=== PATIENT | female | born 1955 | race Caucasian/White ===

== ENCOUNTER 2016-10-19 19:51 | Inpatient (IN) | payer OTHER ==
[~2016-10-19] VITALS: Ht 152.4 cm; Wt 111.0 kg
[2016-10-19] MEDS ORDERED: SODIUM CHLORIDE 0.9% 1000ML 1,000 ML IV STA (19:54)
[2016-10-19] MEDS ORDERED: LORAZEPAM 2 MG/ML 1 ML VIAL IV STA (19:54)
[2016-10-19] MEDS ORDERED: FENTANYL CITRATE INJ 50 MCG/1 ML 2 ML VIAL IV STA (19:54)
[2016-10-19 20:45] LABS: BLOOD UREA NITROGEN 18 mg/dl (7-18); CALCIUM 9.1 mg/dl (8.5-10.1); CARBON DIOXIDE 24 mmol/L (21-32); CHLORIDE 104 mmol/L (98-107); GLUCOSE 112 mg/dl (70-99); POTASSIUM 3.3 mmol/L (3.5-5.1); SODIUM 141 mmol/L (136-145)
[2016-10-19 20:48] LABS: MEAN CELL VOLUME 83.3 fL (80-100); MEAN CORPUSCULAR HEMOGLOBIN 28.9 pg (25-34); MEAN CORPUSCULAR HGB CONC 34.7 g/dl (32-36); MEAN PLATELET VOLUME 12.3 fL (7.4-10.4); PLATELET COUNT 369 K/uL (130-400); WHITE BLOOD COUNT 37.83 K/uL (4.8-10.8)
[2016-10-19 20:49] LABS: BASO % 0.3 %; BASO ABS # 0.11 K/uL (0-0.2); COMPLETE YES; EOS % 0.8 %; IG% 0.9 %; LYMPH % 7.8 %; LYMPH ABS # 2.95 K/uL (1.2-3.4); MONO % 5.9 %; NEUT % 84.3 %
[2016-10-19] MEDS: HYDROmorphone INJ 1 MG/ML SYR IV PRN ×2 (21:08→22:50)
[2016-10-19] MEDS ORDERED: IBUP-1050 PO (21:22)
[2016-10-19] MEDS ORDERED: LISI40TA PO (21:22)
[2016-10-19] MEDS ORDERED: NEBI10TA2 PO (21:22)
[2016-10-19] MEDS ORDERED: ASPI81TA28 PO (21:22)
[2016-10-19] MEDS ORDERED: LORA-741 PO (21:22)
[2016-10-19] MEDS ORDERED: SERT50TA PO (21:22)
--- NOTE | 2016-10-19 21:58 | DIAGNOSTIC IMAGING REPORT ---
RIGHT FEMUR 3 VIEWS; RIGHT KNEE 2 VIEWS CLINICAL HISTORY: Fall with right leg pain. FINDINGS: AP, frog-leg, and lateral views of the right femur with AP and lateral views of the right knee are obtained. No prior studies are available for comparison at the time of dictation. The skeletal structures are osteopenic. There is a comminuted fracture involving the distal femoral diaphysis. There are large distracted fragments. The distal femoral shaft is distracted medially by approximately 4 cm, and there is apex dorsal angulation. There is overriding of the fragments by approximately 3 cm. There is significant surrounding soft tissue edema. Fracture does not appear to extend to the knee joint. The proximal femur and the imaged right bony pelvis appear intact. The proximal tibia and fibula are grossly intact. Arthritic change is present in the knee. IMPRESSION: 1. There is a comminuted, overriding, and angulated fracture of the distal femoral diaphysis with numerous distracted fragments and overlying soft tissue edema. 2. The proximal femur appears intact, as do the proximal tibia and fibula. 3. Fracture does not appear to extend to the knee joint. Electronically signed by: Addy Mensah M.D. 10/19/2016 9:56 PM Dictated Date/Time: 10/19/2016 9:53 PM
--- NOTE | 2016-10-19 22:01 | DIAGNOSTIC IMAGING REPORT ---
SINGLE VIEW PELVIS CLINICAL HISTORY: Fall with right femoral fracture. FINDINGS: 2 AP pelvic radiograph are correlated with pelvic CT dated 07/10/2013. The skeletal structures are osteopenic. There is no radiographic evidence of fracture involving the hips or bony pelvis. Mild arthritic change is seen in the hip joints. The sacroiliac joints are normal in appearance. The overlying soft tissues are unremarkable. There is a nonobstructed abdominal bowel gas pattern. IMPRESSION: No fracture is identified in the hips or bony pelvis. Electronically signed by: Addy Mensah M.D. 10/19/2016 10:00 PM Dictated Date/Time: 10/19/2016 9:58 PM
--- NOTE | 2016-10-19 22:53 | EMERGENCY ROOM VISIT NOTE ---
History Report prepared by Alyssa: Domenico Cherry Under the Supervision of: Dr. Nando Griffin M.D. First contact with patient: 19:51 Chief Complaint: FALL Stated Complaint: KNEE & SIDE PAIN, FALL History of Present Illness The patient is a 61 year old female who presents to the Emergency Room with complaints of constant right knee pain due to a fall beginning just prior to arrival. She notes the pain worsens with movement. The patient states she was walking into her house when she slipped outside. She notes a history of severe arthritis. The patient denies hip pain or hurting her right knee in the past. Source of History: patient Onset: just prior to arrival Position: knee (right) Timing: constant Modifying Factors (Worsening): movement Review of Systems See HPI for pertinent positives & negatives. A total of 10 systems reviewed and were otherwise negative. Past Medical & Surgical Medical Problems: (1) Anxiety disorder (2) Hereditary spherocytosis (3) Hypertension Surgical Problems: (1) H/O splenectomy (2) S/P appendectomy (3) S/P cholecystectomy Family History Diabetes mellitus FH: CVA (cerebrovascular accident) FHx: cancer Hypertension Social History Alcohol Use: none Drug Use: none Marital Status: single Occupation Status: unemployed Current/Historical Medications Scheduled Aspirin (Aspirin Ec), 81 MG PO QAM Ibuprofen (Advil), 400 MG PO BID Lisinopril (Prinivil), 40 MG PO QAM Nebivolol Hcl (Bystolic), 10 MG PO QPM Sertraline (Zoloft), 50 MG PO QAM Scheduled PRN Lorazepam (Ativan), 0.5 MG PO BID PRN for Anxiety Allergies Coded Allergies: Prednisone (Verified Allergy, Severe, HIVES, 10/19/16) Metronidazole (Verified Adverse Reaction, Unknown, "jumpiness" per pt, ) Physical Exam Vital Signs Date Time Temp Pulse Resp B/P Pulse Ox O2 Delivery O2 Flow Rate FiO2 10/19/16 22:41 92 16 169/105 99 10/19/16 21:34 86 18 181/102 96 10/19/16 21:20 4.0 10/19/16 19:57 36.7 88 20 193/103 99 Physical Exam GENERAL: Patient is very anxious appearing and in moderate distress. HEENT: No acute trauma, normocephalic atraumatic, mucous membranes moist, no nasal congestion, no scleral icterus. NECK: No stridor, no adenopathy, no meningismus, trachea is midline. LUNGS: No dyspnea. Clear to auscultation and equal bilaterally. No wheeze, no rhonchi. HEART: Regular rate and rhythm. No murmurs, rubs, gallops appreciated. ABDOMEN: Soft, nontender, bowel sounds positive, no masses appreciated, no peritonitis. BACK: No midline tenderness, no CVA tenderness EXTREMITIES: Tenderness to palpation of right femur with severe pain with any range of motion of right femur. Normal motion all other extremities, no cyanosis , no edema. NEUROLOGIC: Alert and oriented, no acute motor or sensory deficits, no focal weakness, cranial nerves grossly intact. SKIN: No rash, no jaundice, no diaphoresis. Medical Decision & Procedures ER Provider Diagnostic Interpretation: X ray results are stated below per my interpretation and the radiologist's interpretation. SINGLE VIEW PELVIS CLINICAL HISTORY: Fall with right femoral fracture. FINDINGS: 2 AP pelvic radiograph are correlated with pelvic CT dated 07/10/2013. The skeletal structures are osteopenic. There is no radiographic evidence of fracture involving the hips or bony pelvis. Mild arthritic change is seen in the hip joints. The sacroiliac joints are normal in appearance. The overlying soft tissues are unremarkable. There is a nonobstructed abdominal bowel gas pattern. IMPRESSION: No fracture is identified in the hips or bony pelvis. Electronically signed by: Addy Mensah M.D. 10/19/2016 10:00 PM RIGHT FEMUR 3 VIEWS; RIGHT KNEE 2 VIEWS CLINICAL HISTORY: Fall with right leg pain. FINDINGS: AP, frog-leg, and lateral views of the right femur with AP and lateral views of the right knee are obtained. No prior studies are available for comparison at the time of dictation. The skeletal structures are osteopenic. There is a comminuted fracture involving the distal femoral diaphysis. There are large distracted fragments. The distal femoral shaft is distracted medially by approximately 4 cm, and there is apex dorsal angulation. There is overriding of the fragments by approximately 3 cm. There is significant surrounding soft tissue edema. Fracture does not appear to extend to the knee joint. The proximal femur and the imaged right bony pelvis appear intact. The proximal tibia and fibula are grossly intact. Arthritic change is present in the knee. IMPRESSION: 1. There is a comminuted, overriding, and angulated fracture of the distal femoral diaphysis with numerous distracted fragments and overlying soft tissue edema. 2. The proximal femur appears intact, as do the proximal tibia and fibula. 3. Fracture does not appear to extend to the knee joint. Electronically signed by: Addy Mensah M.D. 10/19/2016 9:56 PM RIGHT FEMUR 3 VIEWS; RIGHT KNEE 2 VIEWS CLINICAL HISTORY: Fall with right leg pain. FINDINGS: AP, frog-leg, and lateral views of the right femur with AP and lateral views of the right knee are obtained. No prior studies are available for comparison at the time of dictation. The skeletal structures are osteopenic. There is a comminuted fracture involving the distal femoral diaphysis. There are large distracted fragments. The distal femoral shaft is distracted medially by approximately 4 cm, and there is apex dorsal angulation. There is overriding of the fragments by approximately 3 cm. There is significant surrounding soft tissue edema. Fracture does not appear to extend to the knee joint. The proximal femur and the imaged right bony pelvis appear intact. The proximal tibia and fibula are grossly intact. Arthritic change is present in the knee. IMPRESSION: 1. There is a comminuted, overriding, and angulated fracture of the distal femoral diaphysis with numerous distracted fragments and overlying soft tissue edema. 2. The proximal femur appears intact, as do the proximal tibia and fibula. 3. Fracture does not appear to extend to the knee joint. Electronically signed by: Addy Mensah M.D. 10/19/2016 9:56 PM Laboratory Results 10/19/16 20:16 Red Blood Count 5.40, Mean Corpuscular Volume 83.3, Mean Corpuscular Hemoglobin 28.9, Mean Corpuscular Hemoglobin Concent 34.7, Mean Platelet Volume 12.3, Neutrophils (%) (Auto) 84.3, Lymphocytes (%) (Auto) 7.8, Monocytes (%) (Auto) 5.9, Eosinophils (%) (Auto) 0.8, Basophils (%) (Auto) 0.3, Neutrophils # (Auto) 31.89, Lymphocytes # (Auto) 2.95, Monocytes # (Auto) 2.23, Eosinophils # (Auto) 0.30, Basophils # (Auto) 0.11 10/19/16 20:16 Test 10/19/16 20:16 White Blood Count 37.83 K/uL (4.8-10.8) Red Blood Count 5.40 M/uL (4.2-5.4) Hemoglobin 15.6 g/dL (12.0-16.0) Hematocrit 45.0 % (37-47) Mean Corpuscular Volume 83.3 fL (80-100) Mean Corpuscular Hemoglobin 28.9 pg (25-34) Mean Corpuscular Hemoglobin Concent 34.7 g/dl (32-36) Platelet Count 369 K/uL (130-400) Mean Platelet Volume 12.3 fL (7.4-10.4) Neutrophils (%) (Auto) 84.3 % Lymphocytes (%) (Auto) 7.8 % Monocytes (%) (Auto) 5.9 % Eosinophils (%) (Auto) 0.8 % Basophils (%) (Auto) 0.3 % Neutrophils # (Auto) 31.89 K/uL (1.4-6.5) Lymphocytes # (Auto) 2.95 K/uL (1.2-3.4) Monocytes # (Auto) 2.23 K/uL (0.11-0.59) Eosinophils # (Auto) 0.30 K/uL (0-0.5) Basophils # (Auto) 0.11 K/uL (0-0.2) RDW Standard Deviation 44.0 fL (36.4-46.3) RDW Coefficient of Variation 14.5 % (11.5-14.5) Immature Granulocyte % (Auto) 0.9 % Immature Granulocyte # (Auto) 0.35 K/uL (0.00-0.02) Nucleated RBC Absolute Count (auto) 0.09 K/uL (0-0) Nucleated Red Blood Cells % 0.2 % Anion Gap 13.0 mmol/L (3-11) Est Creatinine Clear Calc Drug Dose 62.3 ml/min Estimated GFR () 63.6 Estimated GFR (Non- 54.9 BUN/Creatinine Ratio 16.0 (10-20) Calcium Level 9.1 mg/dl (8.5-10.1) Laboratory results as reviewed by me. Medications Administered Medications (Trade) Dose Ordered Sig/Prabhakar Route Start Time Stop Time Status Last Admin Dose Admin Fentanyl Citrate (Fentanyl Inj) 100 mcg NOW STAT IV 10/19/16 19:54 10/19/16 19:56 DC 10/19/16 20:12 100 MCG Lorazepam 1 mg 1 mg NOW STAT IV 10/19/16 19:54 10/19/16 19:56 DC 10/19/16 20:11 1 MG Sodium Chloride (Nss 1000ml) 1,000 ml @ 75 mls/hr [id number] STAT IV 10/19/16 19:54 10/20/16 09:13 10/19/16 19:54 75 MLS/HR Hydromorphone HCl (Dilaudid Inj) 1 mg Q30M PRN IV 10/19/16 20:45 11/02/16 20:44 10/19/16 21:08 1 MG ED Course 1950: The patient was evaluated in room C1B. A complete history and physical exam was performed. 1953: Ordered Sodium Chloride 1,000 ml @ 999 mls/hr IV, Ativan Inj 1 mg IV, Fentanyl Inj 100 mcg IV. 2029: Reevaluated the patient at this time, and she is feeling better. A Boone catheter will be placed, because the patient is unable to get up to provide a sample. 2044: Ordered Dilaudid Inj 1 mg IV. 2099: Reevaluated the patient at this time, and she is over at x-ray. I discussed the patient's elevated WBC with the patient's sister, who is a nurse, and she noted the patient's WBC routinely runs in the 30s. 2133: I spoke to Dr. Hartley, [facility] (Orthopedic Surgery) about the patients case, and he will come in to see the patient. 2157: I spoke to Dr. Watkins [facility] (Hospitalist) about the patients case, and he will follow the patient for further evaluation. Medical Decision Differential: Fracture, Dislocation, Cellulitis, Septic Joint, Ligamentous Injury, Effusion, DVT, amongst other pathologies entertained. 61 yr old female with slip and fall landing on right knee. She has displaced comminuted right distal femur fracture. Will likely need surgical intervention. Unable to do bucks traction down here but will plan on starting on floor. She is feeling improved with multiple rounds narcotic pain medications. Boone in place due to inability to sit on toilet with this fracture. She is stable and no other evidence of other injuries. WBC elevated at baseline level per patient and sister (who is nurse). Consults Time Called: 2131 Consulting Physician: Dr. Hartley, [facility] (Orthopedic Surgery) Returned Call: [address] Hartley, [facility] (Orthopedic Surgery) about the patients case, and he will come in to see the patient. Additional Consults: Time Called: 2139 Consulted Physician: ADRIANA Matos (Hospitalist) Returned Call: 2157 Additional Comments: I spoke to ADRIANA Matos (Hospitalist) about the patients case, and he will follow the patient for further evaluation. Impression Primary Impression: Femur fracture, right Additional Impression: Fall Scribe Attestation The scribe's documentation has been prepared under my direction and personally reviewed by me in its entirety. I confirm that the note above accurately reflects all work, treatment, procedures, and medical decision making performed by me. Departure Information Dispostion Being Evaluated By Hospitalist (ADRIANA Matos (Hospitalist) ) Problem Qualifiers Primary Impression: Femur fracture, right Encounter type: initial encounter Femur location: shaft Fracture type: closed Fracture morphology: comminuted Fracture alignment: displaced Qualified Codes: S72.351A - Displaced comminuted fracture of shaft of right femur, initial encounter for closed fracture Additional Impression: Fall Encounter type: initial encounter Qualified Codes: W19.XXXA - Unspecified fall, initial encounter
[2016-10-19] MEDS ORDERED: METOPROLOL TARTRATE 50 MG TAB PO STA (23:04)
--- NOTE | 2016-10-19 23:08 | History and Physical ---
History & Physical Date & Time of Service: Oct 19, 2016 at 22:49 Chief Complaint: Knee & Side Pain, Fall Primary Care Physician: Jerrell Post M.D. History of Present Illness Source: patient Karina Quezada is a 61 yo asplenic female with history of hereditary spherocytosis, s/p splenectomy, and hypertension, who presents with severe right leg pain after a fall on ice earlier today. She was stepping down a step and slipped and fell. She was brought to the ED and found to have a significant comminuted distal femur fracture. She reports her pain had improved with dilaudid but is slowly returning now. She feels better when her leg is slightly straightened out. Past Medical/Surgical History PMHx: - Anxiety - Depression - Asplenia - Hereditary spherocytosis PSHx: - S/P Splenectomy - spleen ruptured on own apparently, was sent to [place] from [facility]. Sister reports she is completely vaccinated. - S/P Cholecystectomy - S/P Appendectomy Family History Diabetes mellitus FH: CVA (cerebrovascular accident) FHx: cancer Hypertension FHx of hereditary spherocytosis as well Social History Smoking Status: Former Smoker Drug Use: none Immunizations History of Influenza Vaccine: No History of Tetanus Vaccine?: No History of Pneumococcal: No History of Hepatitis B Vaccine: No Allergies Coded Allergies: Prednisone (Verified Allergy, Severe, HIVES, 10/19/16) Metronidazole (Verified Adverse Reaction, Unknown, "jumpiness" per pt, ) Home Medications Scheduled Aspirin (Aspirin Ec), 81 MG PO QAM Ibuprofen (Advil), 400 MG PO BID Lisinopril (Prinivil), 40 MG PO QAM Nebivolol Hcl (Bystolic), 10 MG PO QPM Sertraline (Zoloft), 50 MG PO QAM Scheduled PRN Lorazepam (Ativan), 0.5 MG PO BID PRN for Anxiety Review of Systems See HPI for pertinent positives & negatives. A total of 10 systems reviewed and were otherwise negative. Physical Exam Vital Signs Date Time Temp Pulse Resp B/P Pulse Ox O2 Delivery O2 Flow Rate FiO2 10/19/16 22:41 92 16 169/105 99 10/19/16 21:34 86 18 181/102 96 10/19/16 21:20 4.0 10/19/16 19:57 36.7 88 20 193/103 99 General Appearance: WD/WN, + mild distress Head: normocephalic, atraumatic Eyes: normal inspection ENT: hearing grossly normal Neck: supple, no JVD Respiratory/Chest: lungs clear, normal breath sounds, no respiratory distress Cardiovascular: regular rate, rhythm, no murmur, normal peripheral pulses Abdomen/GI: normal bowel sounds, non tender, soft Extremities/Musculoskelatal: + pertinent finding (right leg tender, limited ROM causing pain in all modalities. good peripheral pulses. ) Neurologic/Psych: alert, normal mood/affect, oriented x 3 Skin: no rash Diagnostics Laboratory Results Results Past 24 Hours Test 10/19/16 20:16 Range/Units White Blood Count 37.83 4.8-10.8 K/uL Red Blood Count 5.40 4.2-5.4 M/uL Hemoglobin 15.6 12.0-16.0 g/dL Hematocrit 45.0 37-47 % Mean Corpuscular Volume 83.3 80-100 fL Mean Corpuscular Hemoglobin 28.9 25-34 pg Mean Corpuscular Hemoglobin Concent 34.7 32-36 g/dl Platelet Count 369 130-400 K/uL Mean Platelet Volume 12.3 7.4-10.4 fL Neutrophils (%) (Auto) 84.3 % Lymphocytes (%) (Auto) 7.8 % Monocytes (%) (Auto) 5.9 % Eosinophils (%) (Auto) 0.8 % Basophils (%) (Auto) 0.3 % Neutrophils # (Auto) 31.89 1.4-6.5 K/uL Lymphocytes # (Auto) 2.95 1.2-3.4 K/uL Monocytes # (Auto) 2.23 0.11-0.59 K/uL Eosinophils # (Auto) 0.30 0-0.5 K/uL Basophils # (Auto) 0.11 0-0.2 K/uL RDW Standard Deviation 44.0 36.4-46.3 fL RDW Coefficient of Variation 14.5 11.5-14.5 % Immature Granulocyte % (Auto) 0.9 % Immature Granulocyte # (Auto) 0.35 0.00-0.02 K/uL Nucleated RBC Absolute Count (auto) 0.09 0-0 K/uL Nucleated Red Blood Cells % 0.2 % Sodium Level 141 136-145 mmol/L Potassium Level 3.3 3.5-5.1 mmol/L Chloride Level 104 98-107 mmol/L Carbon Dioxide Level 24 21-32 mmol/L Anion Gap 13.0 3-11 mmol/L Blood Urea Nitrogen 18 7-18 mg/dl Creatinine 1.10 0.60-1.20 mg/dl Est Creatinine Clear Calc Drug Dose 62.3 ml/min Estimated GFR () 63.6 Estimated GFR (Non- 54.9 BUN/Creatinine Ratio 16.0 10-20 Random Glucose 112 70-99 mg/dl Calcium Level 9.1 8.5-10.1 mg/dl Diagnostic Radiology RIGHT FEMUR 3 VIEWS; RIGHT KNEE 2 VIEWS CLINICAL HISTORY: Fall with right leg pain. FINDINGS: AP, frog-leg, and lateral views of the right femur with AP and lateral views of the right knee are obtained. No prior studies are available for comparison at the time of dictation. The skeletal structures are osteopenic. There is a comminuted fracture involving the distal femoral diaphysis. There are large distracted fragments. The distal femoral shaft is distracted medially by approximately 4 cm, and there is apex dorsal angulation. There is overriding of the fragments by approximately 3 cm. There is significant surrounding soft tissue edema. Fracture does not appear to extend to the knee joint. The proximal femur and the imaged right bony pelvis appear intact. The proximal tibia and fibula are grossly intact. Arthritic change is present in the knee. IMPRESSION: 1. There is a comminuted, overriding, and angulated fracture of the distal femoral diaphysis with numerous distracted fragments and overlying soft tissue edema. 2. The proximal femur appears intact, as do the proximal tibia and fibula. 3. Fracture does not appear to extend to the knee joint. Electronically signed by: Addy Mensah M.D. 10/19/2016 9:56 PM Dictated Date/Time: 10/19/2016 9:53 PM\\ SINGLE VIEW PELVIS CLINICAL HISTORY: Fall with right femoral fracture. FINDINGS: 2 AP pelvic radiograph are correlated with pelvic CT dated 07/10/2013. The skeletal structures are osteopenic. There is no radiographic evidence of fracture involving the hips or bony pelvis. Mild arthritic change is seen in the hip joints. The sacroiliac joints are normal in appearance. The overlying soft tissues are unremarkable. There is a nonobstructed abdominal bowel gas pattern. IMPRESSION: No fracture is identified in the hips or bony pelvis. Impression Assessment and Plan 61 yo F with hypertension, asplenia, anxiety, depression who presents with right distal femur fracture after a fall on the ice. Plan: Right distal femur fracture Reviewed by Dr Hartley in ED NPO from midnight with IV fluids. HTN Hold Lisinopril 20mg in AM Hold ibuprofen, hold aspirin Hydralazine IV 10mg q4h, PRN SBP > 150 Will convert Navedibolol to Metoprolol tartrate 50mg PO now, then BID, with hold parameters Anxiety / Depression Hold sertraline IV Ativan PRN Asplenia Will start prophylactic antibiotics with Vanc and Rocephin, and adjust accordingly Will start ceftriaxone 1gm now then q8h DISPO: Med/Surg CODE STATUS: Full VTE: Will start heparin/Lovenox after surgery Resident Tracking Resident Involvement: Resident Care Provided Care Provided: [facility] Medicine Assessment and Plan Attending addendum: I have seen and examined this patient, have directed their medical care, have supervised the resident and agree with the H&P as noted above. The full H&P is as follows below.\\ HPI: The patient is a 61-year-old female who presents emergency department with severe right leg pain that developed as she was walking down a step, and slipped and fell on ice. X-rays in the emergency department revealed a complex distal femur fracture, and the patient was referred for evaluation for admission for pain control, and was seen by Dr. Hartley from orthopedics, who plans to take the patient OR in the morning if medically stable. The patient is accompanied by her daughters in the emergency department, who supplement the patient's history of present illness and review of systems. ROS: The patient denies chest pain, palpitations, shortness of breath, cough, vision change, hearing change, sore throat, fevers, chills, sweats, weight change, fatigue, nausea, vomiting, abdominal pain, pelvic pain, blood in urine or stool , dysuria, urinary frequency or urgency, lightheadedness, dizziness, headache, memory loss, rash, abnormal bruising or bleeding, numbness or tingling in arms, arthralgias or myalgias other than in right leg, back or neck pain, night sweats , or allergy symptoms. The review of systems is otherwise negative other than for that already noted above, and at least 10 systems have been reviewed. PMH: Anxiety Depression Asplenia Hereditary spherocytosis PSH: Status post splenectomy-due to spontaneous splenic rupture associated with hereditary spherocytosis, with up-to-date immunizations. Status post cholecystectomy Status post appendectomy FH: Diabetes mellitus CVA Cancer Hypertension Hereditary spherocytosis SOCIAL HISTORY: Former smoker No drug use No alcohol use ALLERGIES: Prednisone--caused severe hives Metronidazole--caused jumpiness MEDICATIONS UPON ADMISSION: Enteric-coated aspirin 81 mg by mouth every morning. Ibuprofen 400 mg by mouth twice a day. Lisinopril 40 mg by mouth every morning. Bystolic 10 mg by mouth every afternoon. Sertraline 50 mg by mouth every morning. Lorazepam 0.5 mg by mouth twice a day when necessary for anxiety. Physical Exam: The patient is awake, well-developed and adequately nourished, alert and oriented 3, mildly sedated post pain medications, normocephalic and atraumatic , lying in bed and in reduced but tolerable pain . HEENT--PERRL, EOMI, mucous membranes moist, and oropharynx normal. Neck--supple, no JVD or bruits, thyroid normal, trachea midline, no adenopathy. Heart--normal S1 and S2, no extra beats, no murmurs, rubs or gallops. Lungs--clear bilaterally with good air movement, no respiratory distress, no accessory muscle use. Abdomen--normal bowel sounds and soft, nontender and nondistended, no hernias or masses, no organomegaly. Extremities--no cyanosis, clubbing or edema. There are good distal pulses b/l. Dermatologic--normal skin turgor, normal color, warm and dry, no abnormal lymph nodes, no rash. Neurologic--cranial nerves II through XII grossly intact. Rheumatologic--pain over distal right femur with laxity of that area. Psychiatric--normal affect, mildly sedated secondary to pain meds. Imaging studies there is a comminuted, overriding and angulated fracture of the distal femoral diaphysis with numerous distracted fragments and overlying soft tissue edema. The proximal femur appears intact, as to the proximal tibia and fibula. Fracture does not appear to extend to the knee joint. Assessment and Plan; Distal femoral diaphysis fracture--the patient be admitted to the medical surgical floor, with nothing by mouth status. She'll be placed on Dilaudid 0.5- 1 mg IV every 2 hours when necessary, IV fluids, Zofran for nausea, pantoprazole for GI prophylaxis, no DVT prophylaxis for possible surgery in the a.m. She has been seen by the orthopedist and emergency department, with plans to take the patient to the OR. The patient's chest x-ray has been reviewed and is normal, the patient's EKG shows NSR at 86, mildly prolonged QT, with no acute ST-T changes. Her B-Jose G was changed from Bystolic 10mg daily to metoprolol tartrate 50mg po bid. She would be considered an acceptable risk for the proposed surgery. Hypertension--hold lisinopril 40 mg by mouth every morning, enteric-coated aspirin 81 mg by mouth every morning, Bystolic 10 mg by mouth every afternoon, and place on metoprolol tartrate 50 mg by mouth now and 50 mg by mouth twice a day with hold parameters. Asplenectomy--we'll place on ceftriaxone 1 g IV daily and vancomycin 1 g IV per renal dosing for preoperative antibiotics. Anxiety/depression--continue sertraline 50 mg by mouth every morning, and have lorazepam 0.5 mg by mouth 4 times a day when necessary available for anxiety.
[2016-10-19] MEDS ORDERED: VANCOMYCIN INJ 1,000 MG in SODIUM CHLORIDE 0.9% 250ML 250 ML IV STA (23:09)
[2016-10-19] MEDS ORDERED: POTASSIUM CHLORIDE 10 MEQ TABCR PO STA (23:14)
[2016-10-19] MEDS ORDERED: ONDANSETRON INJ 2 MG/ML 2 ML VIAL IV PRN (23:15)
[2016-10-19] MEDS ORDERED: MAGNESIUM HYDROXIDE SUSP 30 ML UDC PO PRN (23:15)
[2016-10-19] MEDS ORDERED: ALUMINUM/MAGNESIUM/SIMETH (MAALOX MAX) 30 ML UDC PO PRN (23:15)
[2016-10-19 23:27] LABS: PROTHROMBIN TIME (PATIENT) 10.7 SECONDS (9.0-12.0)
[2016-10-20] VITALS (11 sets, daily range): BP systolic 145–172; BP diastolic 74–90; PULSE 72–98; TEMP 36.3–36.8; O2SAT 98–100; Ht 152.4 cm; Wt 111.0 kg
--- NOTE | 2016-10-20 00:20 | ORTHOPEDIC CONSULTATION ---
DATE OF CONSULTATION: 10/19/2016 HISTORY OF PRESENT ILLNESS: The patient is a 61-year-old female who slipped and fell outside her home injuring her right knee. She has history of arthritis in that knee. She was brought to Emergency Room. She was diagnosed with a distal left femoral fracture. She denies other injury. There is no numbness or tingling. PAST MEDICAL HISTORY: Significant for hypertension, anxiety, depression, and right knee arthritis, obesity. She is a 61-year-old female. PAST SURGICAL HISTORY: Include splenectomy, gallbladder, hysterectomy. ALLERGIES: PREDNISONE GIVES HER HIVES, ALSO ALLERGIC TO FLAGYL. MEDICATIONS: Noted in the review of her medical record; sertraline, Ativan, Prinivil, Advil and aspirin. PHYSICAL EXAMINATION: EXTREMITIES: She is tender over the right distal thigh area. There is perhaps some swelling. There is no break in the skin. Her upper thigh, leg and ankle are nontender. She has 1+ dorsalis pedis and posterior tib pulses. Sensation in the foot and leg is normal. She can flex and extend her ankle and toes normally against resistance. DIAGNOSTIC IMAGING: Radiographs including an AP traction film show a comminuted fracture in the metadiaphysis junction of the right distal femur. There appears to be arthritis in the right knee. It is uncertain or unclear if the fracture extends into the joint area. IMPRESSION: Obesity. PLAN: The patient is overweight and has a large leg. We will apply a knee immobilizer and some traction in an attempt to keep her stabilized and comfortable. She is going to be admitted by medicine and will have pain control overnight with icing and elevation as well as neurovascular checks. We will obtain a CT scan of the distal femur in order to evaluate whether this fracture disrupts the condyles. Considerations would be for an intramedullary fixation versus ORIF. I think this would be more suited to a retrograde femoral nail. I discussed with patient and her family that surgical intervention is likely necessary to achieve optimal result. We will discuss further after we review the other imaging.
[2016-10-20 00:22] LABS: ALKALINE PHOSPHATASE 121 U/L (45-117); ALT/SGPT 21 U/L (12-78); AST/SGOT 20 U/L (15-37); MAGNESIUM 2.1 mg/dl (1.8-2.4)
[2016-10-20] MEDS ORDERED: HydrALAZINE HCL 20 MG/ML VIAL IV. PRN (00:30)
[2016-10-20] MEDS ORDERED: LORAZEPAM 2 MG/ML 1 ML VIAL IV PRN (00:30)
[2016-10-20] MEDS ORDERED: HYDROmorphone INJ 0.5 MG/0.5 ML SYR IV PRN (00:45)
[2016-10-20] MEDS ORDERED: CEFTRIAXONE SOD INJ 1 GM in DEXTROSE 5% ADD-VANTAGE 50ML 50 ML IV STA (01:18)
[2016-10-20] MEDS ORDERED: LORAZEPAM INJ 0.5 MG in SYRINGE 0.75 ML IV PRN (01:30)
[2016-10-20] MEDS: NSS + 20MEQ KCL 1000ML 1,000 ML IV SCH ×3 (01:40→17:29)
[2016-10-20] MEDS: HYDROmorphone INJ 1 MG/ML SYR IV PRN ×7 (01:40→22:03)
[2016-10-20] MEDS ORDERED: VANCOMYCIN INJ 1,000 MG in SODIUM CHLORIDE 0.9% 250ML 250 ML IV STA (02:52)
--- NOTE | 2016-10-20 06:47 | DIAGNOSTIC IMAGING REPORT ---
CHEST ONE VIEW PORTABLE CLINICAL HISTORY: Preoperative chest COMPARISON STUDY: No previous studies for comparison. FINDINGS: The heart is at the upper limits of normal in size. There is no failure. There is no focal pulmonary consolidation. There are no pleural effusions.[ IMPRESSION: No active disease in the chest. Electronically signed by: Gurpreet Pardo M.D. 10/20/2016 6:45 AM Dictated Date/Time: 10/20/2016 6:44 AM
--- NOTE | 2016-10-20 06:49 | DIAGNOSTIC IMAGING REPORT ---
Right femur single view CLINICAL HISTORY: Fracture status post reduction COMPARISON STUDY: Earlier in the day FINDINGS: A single AP view of the femur is provided for interpretation. There is an extensively comminuted fracture of the femur, the proximal extent of which is approximately the junction of the middle distal one third finger. On this single view, the major distal fragment is laterally displaced x 19 mm. IMPRESSION: Comminuted fracture of the distal metadiaphyseal portion of the femur with improved alignment status post reduction Electronically signed by: Gurpreet Pardo M.D. 10/20/2016 6:47 AM Dictated Date/Time: 10/20/2016 6:45 AM
[2016-10-20 06:57] LABS: HEMATOCRIT 41.8 % (37-47); MEAN CELL VOLUME 86.5 fL (80-100); MEAN CORPUSCULAR HGB CONC 32.3 g/dl (32-36); MEAN PLATELET VOLUME 12.3 fL (7.4-10.4); PLATELET COUNT 348 K/uL (130-400); RED BLOOD COUNT 4.83 M/uL (4.2-5.4); WHITE BLOOD COUNT 28.02 K/uL (4.8-10.8)
[2016-10-20 07:27] LABS: BASO % 0.2 %; BASO ABS # 0.05 K/uL (0-0.2); COMPLETE YES; EOS % 0.1 %; IG% 0.3 %; LYMPH % 8.1 %; LYMPH ABS # 2.27 K/uL (1.2-3.4); MONO % 6.4 %; NEUT % 84.9 %
--- NOTE | 2016-10-20 07:29 | DIAGNOSTIC IMAGING REPORT ---
CT RIGHT DISTAL FEMUR NO CONTRAST CT DOSE: 2802.51 mGy.cm CLINICAL HISTORY: Fracture TECHNIQUE: Helical images were acquired in the transverse plane. Sagittal and coronal reformatted images were acquired. COMPARISON STUDY: Conventional radiographic study dated 10/19/2016 FINDINGS: There is a comminuted fracture of the distal femoral diaphysis extending intra-articularly to the intercondylar region. The major distal fragment is anterior displaced by approximately one full shaft width. There is lateral displacement by approximately one half shaft width. There is also mild foreshortening and angulation at the fracture site. The intra-articular intercondylar fracture component demonstrates 4 mm of maximal displacement. There are advanced arthritic changes present within the knee with marked narrowing of the medial joint compartment. 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 IMPRESSION: 1. Comminuted fracture of the distal femoral diaphysis and metaphysis with intra-articular extension. There is foreshortening and angulation at the fracture site. 2. Advanced arthritic changes involving the medial joint compartment of the knee 3. Lipohemarthrosis Electronically signed by: Gurpreet Pardo M.D. 10/20/2016 7:27 AM Dictated Date/Time: 10/20/2016 7:21 AM
[2016-10-20 07:38] LABS: BUN/CREATININE RATIO 16.2 (10-20); CALCIUM 8.3 mg/dl (8.5-10.1); CREATININE 0.99 mg/dl (0.60-1.20); POTASSIUM 4.7 mmol/L (3.5-5.1)
[2016-10-20] MEDS: METOPROLOL TARTRATE 50 MG TAB PO SCH ×2 (08:30→21:03)
--- NOTE | 2016-10-20 10:39 | Discharge Instructions ---
Discharge Instructions Admission Reason for Admission: Fracture Of Distal End Of Right Femur Discharge Discharge Diagnosis / Problem: Right distal femur fracture Discharge Goals Goal(s): Decrease discomfort, Improve function, Increase independence Activity Recommendations Activity Limitations: as noted below Non weight bearing. Keep immobilizer on. NPO. . Current Hospital Diet Patient's current hospital diet: Discharge Diet Recommended Diet: N/A (NPO) Pending Studies Studies pending at discharge: no Medical Emergencies . Who to Call and When: Medical Emergencies: If at any time you feel your situation is an emergency, please call 911 immediately. . Non-Emergent Contact Non-Emergency issues call your: Surgeon . "Provider Documentation" section prepared by Rolan Alba PA-C. VTE Core Measure Inpt VTE Proph given/why not?: Jack Rivera, SCD's
[2016-10-20] MEDS ORDERED: ENOXAPARIN 30 MG/0.3 ML SYR SQ ONE (15:00)
--- NOTE | 2016-10-20 20:53 | Discharge Summary ---
Discharge Summary Admission Date: Oct 19, 2016 at 23:14 Discharge Date: Oct 20, 2016 Discharge Disposition: Acute care facility Principal Diagnosis: Comminuted right femur fracture Problems/Secondary Diagnoses: Right femur single view CLINICAL HISTORY: Fracture status post reduction COMPARISON STUDY: Earlier in the day FINDINGS: A single AP view of the femur is provided for interpretation. There is an extensively comminuted fracture of the femur, the proximal extent of which is approximately the junction of the middle distal one third finger. On this single view, the major distal fragment is laterally displaced x 19 mm. IMPRESSION: Comminuted fracture of the distal metadiaphyseal portion of the femur with improved alignment status post reduction Immunizations: Have You Had Influenza Vaccine: No History of Tetanus Vaccine?: No History of Pneumococcal: No History of Hepatitis B Vaccine: No (Alka. Fonseca MD) Medication Reconciliation Continued Medications: Aspirin (Aspirin Ec) 81 Mg Tab 81 MG PO QAM Lisinopril (Prinivil) 40 Mg Tab 40 MG PO QAM, TAB Lorazepam (Ativan) 0.5 Mg Tab 0.5 MG PO BID PRN for Anxiety, TAB Nebivolol Hcl (Bystolic) 10 Mg Tab 10 MG PO QPM, TAB Sertraline (Zoloft) 50 Mg Tab 50 MG PO QAM, TAB Discontinued Medications: Ibuprofen (Advil) 200 Mg Tab 400 MG PO BID, TAB Discharge Exam Patient sitting comfortably in bed after having recently received a dose of Dilaudid analgesia She is alert, but frustrated and disappointed this this fall and fracture took place. She had a splenic rupture in 2012, and recently lost her mother in July 2016, and so feels very emotional right now. Patient complaining of dry mouth as she is NPO. She was given swab to wet her mouth. She otherwise denies overt symptoms. She says the analgesia takes the edge of the pain, but does not resolve it. Is concerned about recovery time, including rehab. Review of Systems: Constitutional: No chills, No fever, No sweats Respiratory: No cough, No shortness of breath, No wheezing Cardiovascular: No chest pain, No palpitations Abdomen: + nausea, No pain, No vomiting Neurologic: + weakness, No numbness/tingling Physical Exam: General Appearance: WD/WN, + moderate distress, + obese Respiratory/Chest: chest non-tender, lungs clear, normal breath sounds, no respiratory distress Cardiovascular: regular rate, rhythm, no murmur, normal peripheral pulses Abdomen / GI: normal bowel sounds, non tender, soft Extremities: + pertinent finding (Right leg reduced. Has sensation in feet, able to wiggle toes. Dorsalis pedal pulse present) Neurologic/Psychiatric: alert, normal mood/affect, oriented x 3 (Alka. Fonseca MD) Hospital Course 61 year old female who presents emergency department with severe right leg pain secondary to mechanical fall - slipped on ice and landed on right knee. X-rays revealed a complex distal femur fracture, and the patient was referred for evaluation for admission for pain control, and was seen by Dr. Hartley from orthopedics. The patient was admitted to the medical surgical floor. She was kept with nothing by mouth status, given aim for surgery in the morning. Chest x-ray was reviewed to be normal, the patient's EKG showed NSR at 86, mildly prolonged QT, with no acute ST-T changes. She would be considered an acceptable risk for the proposed surgery. She was placed on Dilaudid 0.5-1 mg IV every 2 hours when necessary, IV fluids, Zofran for nausea, pantoprazole for GI prophylaxis, no DVT prophylaxis in view of surgery Given asplenectomy, she was also placed on ceftriaxone 1 g IV daily and vancomycin 1 g IV per renal dosing for preoperative antibiotics. Patient seen and assessed by orthopedics over night. Right femur was reduced as indicated by a subsequent femur x-ray reporting: Comminuted fracture of the distal metadiaphyseal portion of the femur with improved alignment status post reduction. However, orthopedist Dr. Hartley believed that patient would benefit from surgery and care management given complicated nature of fracture. Arrangements were made to transfer patient to [place]. Prior to transfer, discussed with patient the need to follow up with DEXA and vitamin to rule out non-traumatic contributing factors to fracture. Patient understood. Total Time Spent: Less than 30 minutes This includes examination of the patient, discharge planning, medication reconciliation, and communication with other providers. (Alka. Fonseca MD) Resident Physician Supervision Note: I interviewed and examined the patient. Discussed with [Marian] and agree with findings and plan as documented in the note. Any exceptions or clarifications are listed here: [None] Documented By: Mark Ramirez pain reasonably controlled, ortho notes that she'll be better served at tertiary care. she's never had a DEXA, discussed. vitals noted, nad at rest, breathing unlabored, no pallor femur fx - for tertiary transfer once bed available, will want to check vitamin D (d/w pt but will hold off here since she's for transfer and that raises risk of D level "slipping through the cracks" and should have DEXA after discharge) for transfer when bed available. otherwise as above Total Time Spent: Less than 30 minutes (Mark Ramirez, D.O.) Discharge Instructions Please refer to the electronic Patient Visit Report (Discharge Instructions) for additional information. (Alka. Fonseca MD)
[2016-10-21] MEDS ORDERED: CEFTRIAXONE SOD INJ 1 GM in DEXTROSE 5% ADD-VANTAGE 50ML 50 ML IV SCH (01:30)
== END 2016-10-20 22:30 | disposition short-term general hospital (02) | DRG 534 ==
LOC: ENRESERVTM → ENRESERVDT → EDBD 19:51 → C.EDC 19:52 → C.MSN 23:14
PROVIDERS: ADMIT Hospitalist; ATTEND Family Medicine
DX: S72.351A Displaced comminuted fracture of shaft of right femur, initial encounter for closed fracture (principal); Z68.42 Body mass index [BMI] 45.0-49.9, adult; Q89.01 Asplenia (congenital); I10 Essential (primary) hypertension; F32.9 Major depressive disorder, single episode, unspecified; F41.9 Anxiety disorder, unspecified; E66.9 Obesity, unspecified; Z87.891 Personal history of nicotine dependence; M17.11 Unilateral primary osteoarthritis, right knee; D58.0 Hereditary spherocytosis; Z90.81 Acquired absence of spleen; Z79.899 Other long term (current) drug therapy; Z79.1 Long term (current) use of non-steroidal anti-inflammatories (NSAID); Z79.82 Long term (current) use of aspirin; W00.1XXA Fall from stairs and steps due to ice and snow, initial encounter; Y92.008 Other place in unspecified non-institutional (private) residence as the place of occurrence of the external cause

== ENCOUNTER → 2016-11-11 | Outpatient (CLI) | payer OTHER ==
[~2016-11-11] MED LIST: ALLO300T2 PO; ASPI81TA28 PO; CALC600T PO; ERGO500037 PO; FOLI1TAB7 PO; IBUP-1050 PO; LISI40TA PO; LORA-741 PO; NEBI10TA2 PO; SERT50TA PO; TRAM-10 PO
== END | disposition home or self-care (01) ==
LOC: C.RDSM 13:00
PROVIDERS: ATTEND Physical Medicine & Rehabilitation Sports Medicine
DX: S72.91XA Unspecified fracture of right femur, initial encounter for closed fracture (principal); X58.XXXA Exposure to other specified factors, initial encounter

== ENCOUNTER → 2016-11-24 | Outpatient (CLI) | payer OTHER ==
[2016-11-24 10:07] LABS: HEMATOCRIT 38.8 % (37-47); MEAN CELL VOLUME 86.8 fL (80-100); MEAN CORPUSCULAR HEMOGLOBIN 25.5 pg (25-34); MEAN CORPUSCULAR HGB CONC 29.4 g/dl (32-36); MEAN PLATELET VOLUME 11.3 fL (7.4-10.4); PLATELET COUNT 566 K/uL (130-400); RED BLOOD COUNT 4.47 M/uL (4.2-5.4); WHITE BLOOD COUNT 18.83 K/uL (4.8-10.8)
[2016-11-24 10:15] LABS: BLOOD UREA NITROGEN 13 mg/dl (7-18); BUN/CREATININE RATIO 13.2 (10-20); CALCIUM 8.8 mg/dl (8.5-10.1); CARBON DIOXIDE 31 mmol/L (21-32); CHLORIDE 101 mmol/L (98-107); GLUCOSE 72 mg/dl (70-99); POTASSIUM 3.5 mmol/L (3.5-5.1); SODIUM 141 mmol/L (136-145)
--- NOTE | 2016-12-04 08:13 | CODING QUERY NO DIAGNOSIS ---
TREATMENT RENDERED WITHOUT A DIAGNOSIS : 1955 To promote full compliance with coding requirements relating to patient care, physician participation is requested in all cases of nursing program manager uncertainty. Please assist us with providing a diagnosis/symptom for the test(s) below: A diagnosis/symptom was not documented on your Order. A valid diagnosis/symptom is required to bill all insurances. Please remember that we are unable to code a diagnosis of rule out, probable, possible, questionable, or suspected. Tests that require a diagnosis: DOS: 11/24/16 * CBC W/O DIFF DIAGNOSIS: * PARTIAL RENAL PROFILE DIAGNOSIS: Provider Signature: Date: Thank you [facility] Once completed, please kindly fax back to [phone] For questions please call [phone]
== END ==
LOC: C.LABUPNIT 09:39
PROVIDERS: ATTEND Family Medicine
DX: Q89.01 Asplenia (congenital) (principal)

== ENCOUNTER → 2016-12-07 | Outpatient (CLI) | payer OTHER | END | disposition home or self-care (01) | LOC: C.RDSM 12:15 | PROVIDERS: ATTEND Physical Medicine & Rehabilitation Sports Medicine | DX: S72.351D Displaced comminuted fracture of shaft of right femur, subsequent encounter for closed fracture with routine healing (principal); X58.XXXD Exposure to other specified factors, subsequent encounter ==

== ENCOUNTER → 2016-12-25 | Outpatient (CLI) | payer OTHER | END | disposition home or self-care (01) | LOC: C.RDSM 12:10 | PROVIDERS: ATTEND Physical Medicine & Rehabilitation Sports Medicine | DX: S72.351D Displaced comminuted fracture of shaft of right femur, subsequent encounter for closed fracture with routine healing (principal); X58.XXXD Exposure to other specified factors, subsequent encounter ==

== ENCOUNTER → 2017-01-12 | Outpatient (CLI) | payer OTHER | END | disposition home or self-care (01) | LOC: C.RDSM 14:10 | PROVIDERS: ATTEND Physical Medicine & Rehabilitation Sports Medicine | DX: S72.351D Displaced comminuted fracture of shaft of right femur, subsequent encounter for closed fracture with routine healing (principal); X58.XXXD Exposure to other specified factors, subsequent encounter ==

== ENCOUNTER → 2017-02-10 | Outpatient (CLI) | payer OTHER | END | disposition home or self-care (01) | LOC: C.RDSM 15:45 | PROVIDERS: ATTEND Physical Medicine & Rehabilitation Sports Medicine | DX: S72.351D Displaced comminuted fracture of shaft of right femur, subsequent encounter for closed fracture with routine healing (principal); X58.XXXD Exposure to other specified factors, subsequent encounter ==

== ENCOUNTER → 2017-02-16 | Outpatient (CLI) | payer OTHER ==
--- NOTE | 2017-02-16 16:31 | DIAGNOSTIC IMAGING REPORT ---
CT OF THE RIGHT FEMUR CT DOSE: 1753.87 mGy.cm HISTORY: Fracture right femur RT FEMUR FX TECHNIQUE: Multiaxial CT images of the right femur were performed and reformatted in the sagittal and coronal plane without the use of contrast. COMPARISON: None. FINDINGS: Findings of a comminuted fracture of the distal metadiaphyseal region of the right femur. Hairline interlaminar extension to the patellofemoral joint as well as intercondylar notch region. Bony apposition is generally good. Findings of a long plate traversing the length of the femur with multiple orthogonal screws. There is a small amount of callus formation. A significant degree of bony bridging is not felt to be present. IMPRESSION: 1. Findings consistent with open reduction internal fixation of a fracture of the distal femoral shaft extending to the articular services of the patellofemoral joint as well as intercondylar notch region. 2. Bony alignment is in general anatomic, although evidence for bone healing is minimal. Electronically signed by: Gorge Nicholas M.D. 02/16/2017 4:30 PM Dictated Date/Time: 02/16/2017 4:27 PM
== END | disposition home or self-care (01) ==
LOC: C.CTS 15:55
PROVIDERS: ATTEND Physical Medicine & Rehabilitation Sports Medicine
DX: S72.351D Displaced comminuted fracture of shaft of right femur, subsequent encounter for closed fracture with routine healing (principal); X58.XXXD Exposure to other specified factors, subsequent encounter

== ENCOUNTER 2017-03-18 19:07 | Emergency (ER) | payer OTHER ==
[~2017-03-18] VITALS: Ht 152.4 cm; Wt 100.0 kg
[~2017-03-18 19:07] MED LIST changes: -ALLO300T2 PO; -CALC600T PO; -ERGO500037 PO; -FOLI1TAB7 PO; -TRAM-10 PO
[2017-03-18 19:12] VITALS: BP 192/85; PULSE 78; TEMP 37.1; O2SAT 98; Ht 152.4 cm; Wt 100.0 kg
[2017-03-18] MEDS ORDERED: TRAMADOL HCL 50 MG TAB PO STA (20:03)
[2017-03-18] MEDS ORDERED: ERGO500037 PO (20:06)
[2017-03-18] MEDS ORDERED: ALLO300T2 PO (20:06)
[2017-03-18] MEDS ORDERED: CALC600T PO (20:06)
[2017-03-18] MEDS ORDERED: FOLI1TAB7 PO (20:06)
[2017-03-18] MEDS ORDERED: TRAM-10 PO (20:06)
--- NOTE | 2017-03-18 20:54 | DIAGNOSTIC IMAGING REPORT ---
RIGHT FEMUR 3 VIEWS CLINICAL HISTORY: Right thigh pain. FINDINGS: AP, crosstable lateral, and frog-leg views of the right femur are compared to study dated 10/19/2016. The skeletal structures are osteopenic. No acute fracture is seen. There is posttraumatic deformity from a comminuted fracture the distal femur. There is incomplete bony fusion between several fragments. There has been buttress plate fixation along the lateral femoral cortex. Numerous cortical lag screws transfix the buttress plate. There is fracture of the buttress plate seen at the level of the distal femoral metaphysis. Arthritic change is present in the right hip and knee. Mild soft tissue edema is present in the thigh. IMPRESSION: 1. Soft tissue edema is noted in the thigh. No acute fracture is seen. 2. There is posttraumatic deformity in the mid to distal femur from a comminuted fracture which was acute on 10/19/2016. There is incomplete bony fusion between several fragments. 3. There has been buttress plate fixation along the lateral cortex of the femur. The buttress plate is fractured distally. Orthopedic follow-up is recommended. Electronically signed by: Addy Mensah M.D. 03/18/2017 8:53 PM Dictated Date/Time: 03/18/2017 8:49 PM
--- NOTE | 2017-03-18 21:20 | DIAGNOSTIC IMAGING REPORT ---
ULTRASOUND RIGHT LOWER EXTREMITY VENOUS CLINICAL HISTORY: Right thigh pain. COMPARISON STUDY: No priors. TECHNIQUE: Real-time, grayscale, and color Doppler sonography of the deep veins of the right lower extremity was performed from the inguinal crease to the calf. Compression and augmentation were utilized. FINDINGS: There is no sonographic evidence of deep venous thrombosis identified in the right lower extremity. The common femoral, superficial femoral, and popliteal veins are patent and normally compressible. The greater saphenous vein and the profunda femoris vein at the junction with the common femoral vein are clear. The visualized calf veins are patent. IMPRESSION: There is no sonographic evidence of deep venous thrombosis identified in the right lower extremity. Electronically signed by: Addy Mensah M.D. 03/18/2017 9:18 PM Dictated Date/Time: 03/18/2017 9:18 PM
--- NOTE | 2017-03-19 11:07 | EMERGENCY ROOM VISIT NOTE ---
History First contact with patient: 19:49 Chief Complaint: LEG PAIN,LEG INJURY Stated Complaint: RLE PAIN- HX FEMUR FX 10/13 History of Present Illness The patient is a 62 year old female who presents to the Emergency Room with complaints of right eye pain. The patient reports that she noticed pain after sitting on a love seat arm today. She reports pain with weightbearing. The patient has a significant history of right distal femur fracture, undergoing ORIF earlier this year by Dr. Hartley. The patient reports that she has poor bone healing, and pending her evaluation tomorrow morning, will most likely be transferred to [facility] for consultation. Her appointment tomorrow with Dr. Hartley is at 11:00. The patient denies any pain extending below the knee or into the back. Weightbearing worsens her pain to an 8 out of 10. She does have a walker at home. She denies any paresthesias or numbness of the right lower extremity. She denies any prior history of DVT. The patient currently takes a baby aspirin daily. Review of Systems 10 system review was performed and was negative except for pertinent positives and negatives as indicated in history of present illness Past Medical/Surgical History Medical Problems: (1) Anxiety disorder (2) Fracture of distal end of right femur (3) Hereditary spherocytosis (4) Hypertension Surgical Problems: (1) H/O splenectomy (2) S/P appendectomy (3) S/P cholecystectomy Family History Diabetes mellitus FH: CVA (cerebrovascular accident) FHx: cancer Hypertension Social History Smoking Status: Never Smoker Alcohol Use: none Drug Use: none Marital Status: single Occupation Status: unemployed Current/Historical Medications Scheduled Allopurinol (Zyloprim), 300 MG PO DAILY Aspirin (Aspirin Ec), 81 MG PO QAM Calcium Carbonate (Calcium 600), 1 TAB PO DAILY Ergocalciferol (Vitamin D 65431 Unit), 50,000 UNIT PO 2XWK Folic Acid (Folvite), 1 MG PO DAILY Lisinopril (Prinivil), 40 MG PO QAM Nebivolol Hcl (Bystolic), 10 MG PO QPM Sertraline (Zoloft), 50 MG PO QAM Scheduled PRN Lorazepam (Ativan), 0.5 MG PO BID PRN for Anxiety Tramadol (Ultram), 1 TAB PO DAILY PRN for Pain Allergies Coded Allergies: Prednisone (Verified Allergy, Severe, HIVES, 03/18/17) Metronidazole (Verified Adverse Reaction, Unknown, "jumpiness" per pt, ) Physical Exam Vital Signs Date Time Temp Pulse Resp B/P (MAP) Pulse Ox O2 Delivery O2 Flow Rate FiO2 03/18/17 19:12 37.1 78 18 192/85 98 Room Air Physical Exam CONSTITUTIONAL: Obese female, alert and oriented X 3 with positive affect. She does not appear in any acute distress. HEENT: Normocephalic, atraumatic. Pupils equal, round and reactive. NECK: Full active range of motion without discomfort. RESPIRATORY: Clear to auscultation bilaterally with no wheezing, crackles, rhonchi or stridor. CARDIOVASCULAR: Regular rate and rhythm with no murmurs, rubs or gallops. MUSCULOSKELETAL: Examination of the right thigh does not show any ecchymosis or hematoma formations. She has mild tenderness to palpation through the posterior and lateral thigh. Negative logroll. Pedal pulses are intact. INTEGUMENTARY: No rash or other significant dermatologic conditions noted. NEUROLOGIC: No focal neurologic deficits noted. Medical Decision & Procedures ER Provider Diagnostic Interpretation: My interpretation of a right femur x-ray shows a lateral buttress plate fracture just above the prior femur fracture. Radiologist report is as follows: RIGHT FEMUR 3 VIEWS CLINICAL HISTORY: Right thigh pain. FINDINGS: AP, crosstable lateral, and frog-leg views of the right femur are compared to study dated 10/19/2016. The skeletal structures are osteopenic. No acute fracture is seen. There is posttraumatic deformity from a comminuted fracture the distal femur. There is incomplete bony fusion between several fragments. There has been buttress plate fixation along the lateral femoral cortex. Numerous cortical lag screws transfix the buttress plate. There is fracture of the buttress plate seen at the level of the distal femoral metaphysis. Arthritic change is present in the right hip and knee. Mild soft tissue edema is present in the thigh. IMPRESSION: 1. Soft tissue edema is noted in the thigh. No acute fracture is seen. 2. There is posttraumatic deformity in the mid to distal femur from a comminuted fracture which was acute on 10/19/2016. There is incomplete bony fusion between several fragments. 3. There has been buttress plate fixation along the lateral cortex of the femur. The buttress plate is fractured distally. Orthopedic follow-up is recommended. Venous ultrasound of the right lower extremity does not show any evidence for deep vein thrombosis. Radiologist report is as follows: ULTRASOUND RIGHT LOWER EXTREMITY VENOUS CLINICAL HISTORY: Right thigh pain. COMPARISON STUDY: No priors. TECHNIQUE: Real-time, grayscale, and color Doppler sonography of the deep veins of the right lower extremity was performed from the inguinal crease to the calf. Compression and augmentation were utilized. FINDINGS: There is no sonographic evidence of deep venous thrombosis identified in the right lower extremity. The common femoral, superficial femoral, and popliteal veins are patent and normally compressible. The greater saphenous vein and the profunda femoris vein at the junction with the common femoral vein are clear. The visualized calf veins are patent. IMPRESSION: There is no sonographic evidence of deep venous thrombosis identified in the right lower extremity. Medications Administered Medications (Trade) Dose Ordered Sig/Prabhakar Route Start Time Stop Time Status Last Admin Dose Admin Tramadol HCl (Ultram Tab) 50 mg ONE STAT PO 03/18/17 20:03 03/18/17 20:05 DC 03/18/17 20:20 50 MG ED Course Patient history and physical exam were performed. Nurse's notes were reviewed. Vital signs were reviewed and normal. I did review prior femur x-rays, showing a significant distal femur fracture with hardware extending all the way to the hip. I did suggest performing an x-ray as well as an ultrasound to rule out fracture/malposition and the vein thrombosis. The patient was in agreement. She was administered Ultram 50 mg for pain. She reports that she cannot tolerate other analgesics. X-rays of the right femur shows a lateral buttress plate fracture just above the prior distal femur fracture. Venous ultrasound of the right lower extremity is negative for deep vein thrombosis. The patient was advised of her x-ray findings. She was very disappointed and was crying. The patient reports that she does not want to undergo surgery and wants to go home. I did discuss the case further with Dr. Peres, ED attending physician, as well as Dr. Castro, orthopedic surgeon space systems operations craftsman, who stated that a knee immobilizer and walker with minimal weight on the leg is satisfactory until she can follow-up tomorrow morning with Dr. Hartley. The immobilizer was applied, and trial ambulation was successful with a walker. The patient reports that she has enough tramadol at home as needed for pain. She will follow-up with Dr. Hartley tomorrow morning. Medical Decision Impression Primary Impression: Right femur surgical buttress plate fracture Additional Impression: History of ORIF of right distal femur fracture Departure Information Referrals Jerrell Post M.D. (PCP) Patient Instructions My [facility] Problem Qualifiers
== END 2017-03-18 22:15 | disposition home or self-care (01) ==
LOC: C.EDB 19:08 → C.EDD 22:15
DX: S72.91XA Unspecified fracture of right femur, initial encounter for closed fracture (principal); X58.XXXA Exposure to other specified factors, initial encounter; Z87.81 Personal history of (healed) traumatic fracture; I10 Essential (primary) hypertension; F41.9 Anxiety disorder, unspecified; Z90.49 Acquired absence of other specified parts of digestive tract; Z98.890 Other specified postprocedural states; Z79.82 Long term (current) use of aspirin; Z79.899 Other long term (current) drug therapy; Z88.8 Allergy status to other drugs, medicaments and biological substances; Z83.3 Family history of diabetes mellitus; Z82.3 Family history of stroke; Z80.9 Family history of malignant neoplasm, unspecified; Z82.49 Family history of ischemic heart disease and other diseases of the circulatory system

== ENCOUNTER → 2017-06-16 | Outpatient (CLI) | payer OTHER ==
[~2017-06-16] MED LIST changes: +ALLO300T2 PO; +CALC600T PO; +ERGO500037 PO; +FOLI1TAB7 PO; -IBUP-1050 PO; +TRAM-10 PO
== END | disposition home or self-care (01) ==
LOC: C.RDSM 12:56
PROVIDERS: ATTEND Physical Medicine & Rehabilitation Sports Medicine
DX: M15.9 Polyosteoarthritis, unspecified (principal)

== ENCOUNTER → 2017-11-12 | Outpatient (CLI) | payer OTHER, MEDICARE ==
[~2017-11-12] MED LIST changes: -FOLI1TAB7 PO; +FOLI1TAB8 PO
== END | disposition home or self-care (01) ==
LOC: C.RDSM 12:50
PROVIDERS: ATTEND Physical Medicine & Rehabilitation Sports Medicine
DX: Z87.81 Personal history of (healed) traumatic fracture (principal)

== ENCOUNTER 2018-05-05 14:42 | Inpatient (IN) | payer OTHER, MEDICARE ==
[~2018-05-05] VITALS: Ht 149.9 cm; Wt 114.7 kg
--- NOTE | 2018-05-05 15:11 | EMERGENCY ROOM VISIT NOTE ---
History Report prepared by Alyssa: Karina Carbone Under the Supervision of: Dr. Stone Shahid M.D. First contact with patient: 14:52 Chief Complaint: OTHER COMPLAINT Stated Complaint: CELLULITIS History of Present Illness The patient is a 63 year old female who presents to the Emergency Room with complaints of constant, worsening R leg cellulitis beginning a few weeks ago. She notes she was seen at Urgent Care yesterday, and began Keflex as well as Lasix. She notes itchiness and swelling of the area, but no pain. The patient reports the leg is "oozing." She denies recent trauma to the area, and notes she broke her R femur last year. She denies blood thinner use. Source of History: patient Onset: few weeks ago Position: leg (right) Quality: other (cellulitis) Timing: constant, worsening Note: Associated symptom: itchiness of R leg, swelling of R leg, "oozing" of R leg. Denies: R leg pain. Review of Systems See HPI for pertinent positives and negatives. A total of ten systems were reviewed and were otherwise negative. Past Medical & Surgical Medical Problems: (1) Anxiety disorder (2) cellulitis failing outpt treatment (3) Depression (4) Fracture of distal end of right femur (5) Hereditary spherocytosis (6) HTN (hypertension) (7) Hypertension Surgical Problems: (1) H/O splenectomy (2) S/P appendectomy (3) S/P cholecystectomy Family History Diabetes mellitus FH: CVA (cerebrovascular accident) FHx: cancer Hypertension Social History Smoking Status: Never Smoker Alcohol Use: none Drug Use: none Marital Status: single Occupation Status: unemployed Current/Historical Medications Scheduled Allopurinol (Zyloprim), 300 MG PO DAILY Aspirin (Aspirin Ec), 81 MG PO QAM Calcium Carbonate (Calcium 600), 1 TAB PO DAILY Cephalexin Monohydrate (Keflex), 500 MG PO Q6 Cholecalciferol (Vitamin D3), 2,000 UNITS PO DAILY Folic Acid (Folvite), 1 MG PO DAILY Lisinopril (Prinivil), 40 MG PO QAM Nebivolol Hcl (Bystolic), 10 MG PO QPM Potassium Chloride (Micro-K Ext Rel), 10 MEQ PO UD Sertraline (Zoloft), 50 MG PO QPM Scheduled PRN Furosemide (Lasix), 20 MG PO Q12 PRN for livier Lorazepam (Ativan), 0.5 MG PO BID PRN for Anxiety Allergies Coded Allergies: Prednisone (Verified Allergy, Severe, HIVES, 05/05/18) Metronidazole (Verified Adverse Reaction, Unknown, "jumpiness" per pt, 05/05) Physical Exam Vital Signs Date Time Temp Pulse Resp B/P (MAP) Pulse Ox O2 Delivery O2 Flow Rate FiO2 05/05/18 16:45 78 18 180/107 95 Room Air 05/05/18 14:45 36.6 77 20 175/72 96 Room Air Physical Exam Physical Exam GENERAL: She is oriented to person, place, and time. She appears well- developed and well-nourished. She does not appear distressed. HENT: Exam performed. Head: Normocephalic and atraumatic. Right Ear: External ear normal. No mastoid tenderness. Left Ear: External ear normal. No mastoid tenderness. Mouth/Throat: The oropharynx is clear and moist. No trismus in the jaw. No dental abscesses or uvula swelling. No oropharyngeal exudate or tonsillar abscesses. EYES: Conjunctivae and EOM are normal. Pupils are equal, round, and reactive to light. Right eye exhibits no discharge. Left eye exhibits no discharge. No scleral icterus. NECK: Normal range of motion. Neck supple. No JVD present. No spinous process tenderness present. No carotid bruit present. No rigidity. No tracheal deviation and normal range of motion present. No Brudzinski's sign and no Kernig 's sign noted. CV: Normal rate, regular rhythm, normal heart sounds and intact distal pulses. There is no peripheral edema. Palpable radial pulses bue. PULM/CHEST: Effort normal and breath sounds normal. No respiratory distress. No stridor. She has no wheezes. She has no rales. Chest Wall: She exhibits no tenderness. ABD: The abdomen is soft. Bowel sounds are normal. She has no distension. No mass is present. There is no tenderness. There is no rebound, no guarding, no Clay's sign and no tenderness at McBurney's point. Rovsig negative MUSC/SKEL: Normal range of motion. RLE has lymphedema and surrounding erythema with drainage coming diffusely from leg. NEURO: She is alert and oriented to person, place, and time. She has normal strength. No cranial nerve deficit or sensory deficit. Coordination and gait normal. GCS eye subscore is 4. GCS verbal subscore is 5. GCS motor subscore is 6. Cerebellar tests wnl. SKIN: Skin is warm and dry. She is not diaphoretic. PSYCH: She has a normal mood and affect. Behavior is normal. Judgment and thought content normal. Medical Decision & Procedures ER Provider Diagnostic Interpretation: Radiology results as stated below per my review and radiologist interpretation: ULTRASOUND RIGHT LOWER EXTREMITY VENOUS CLINICAL HISTORY: Right leg pain. COMPARISON STUDY: Right lower extremity venous ultrasound dated 03/18/2017. TECHNIQUE: Real-time, grayscale, and color Doppler sonography of the deep veins of the right lower extremity was performed from the inguinal crease to the calf. Compression and augmentation were utilized. FINDINGS: There is no sonographic evidence of deep venous thrombosis identified in the right lower extremity. The common femoral, superficial femoral, and popliteal veins are patent and normally compressible. The greater saphenous vein and the profunda femoris vein at the junction with the common femoral vein are clear. The visualized calf veins are patent. IMPRESSION: There is no sonographic evidence of deep venous thrombosis identified in the right lower extremity. Electronically signed by: Addy Mensah M.D. 05/05/2018 4:37 PM Dictated Date/Time: 05/05/2018 4:37 PM Laboratory Results 05/05/18 15:40 Red Blood Count 5.49, Mean Corpuscular Volume 85.2, Mean Corpuscular Hemoglobin 27.1, Mean Corpuscular Hemoglobin Concent 31.8, Mean Platelet Volume 11.8, Neutrophils (%) (Auto) 73.5, Lymphocytes (%) (Auto) 12.6, Monocytes (%) (Auto) 9.0, Eosinophils (%) (Auto) 4.1, Basophils (%) (Auto) 0.5, Neutrophils # (Auto) 14.80, Lymphocytes # (Auto) 2.54, Monocytes # (Auto) 1.82, Eosinophils # (Auto) 0.83, Basophils # (Auto) 0.10 05/05/18 15:40 Test 05/05/18 15:40 White Blood Count 20.16 K/uL (4.8-10.8) Red Blood Count 5.49 M/uL (4.2-5.4) Hemoglobin 14.9 g/dL (12.0-16.0) Hematocrit 46.8 % (37-47) Mean Corpuscular Volume 85.2 fL (80-100) Mean Corpuscular Hemoglobin 27.1 pg (25-34) Mean Corpuscular Hemoglobin Concent 31.8 g/dl (32-36) Platelet Count 413 K/uL (130-400) Mean Platelet Volume 11.8 fL (7.4-10.4) Neutrophils (%) (Auto) 73.5 % Lymphocytes (%) (Auto) 12.6 % Monocytes (%) (Auto) 9.0 % Eosinophils (%) (Auto) 4.1 % Basophils (%) (Auto) 0.5 % Neutrophils # (Auto) 14.80 K/uL (1.4-6.5) Lymphocytes # (Auto) 2.54 K/uL (1.2-3.4) Monocytes # (Auto) 1.82 K/uL (0.11-0.59) Eosinophils # (Auto) 0.83 K/uL (0-0.5) Basophils # (Auto) 0.10 K/uL (0-0.2) RDW Standard Deviation 55.3 fL (36.4-46.3) RDW Coefficient of Variation 17.8 % (11.5-14.5) Immature Granulocyte % (Auto) 0.3 % Immature Granulocyte # (Auto) 0.07 K/uL (0.00-0.02) Nucleated RBC Absolute Count (auto) 0.06 K/uL (0-0) Nucleated Red Blood Cells % 0.3 % Anion Gap 7.0 mmol/L (3-11) Est Creatinine Clear Calc Drug Dose 58.3 ml/min Estimated GFR () 59.5 Estimated GFR (Non- 51.3 BUN/Creatinine Ratio 14.4 (10-20) Lactic Acid Level 1.0 mmol/L (0.4-2.0) Calcium Level 8.6 mg/dl (8.5-10.1) Laboratory results reviewed by me Medications Administered Medications (Trade) Dose Ordered Sig/Prabhakar Route Start Time Stop Time Status Last Admin Dose Admin Vancomycin HCl (Vancomycin 1gm Ed/Asu Omnicell) 1 gm NOW STAT IV 05/05/18 16:26 05/05/18 16:28 DC 05/05/18 16:42 1 GM ED Course 1452: The patient was evaluated in room B11B. A complete history and physical exam was performed. 1626: Ordered Vancomycin HCl 1 gm IV. 1644: Vital signs stable. US negative for DVT, labs show leukocytosis of 20, otherwise within normal limits. Patient will be treated with vancomycin for cellulitis and admitted to hospital service. Discussed the patient's case with Dr. Mac [facility] hospitalist. The patient will be evaluated for further treatment and disposition. Medical Decision Vital signs stable. US negative for DVT, labs show leukocytosis of 20, otherwise within normal limits. Patient will be treated with vancomycin for cellulitis and admitted to hospital service. Discussed the patient's case with Dr. Mac [facility] hospitalist. The patient will be evaluated for further treatment and disposition. Medication Reconcilliation Current Medication List: was personally reviewed by me Blood Pressure Screening Patient's blood pressure: Elevated blood pressure Blood pressure disposition: Referred to PCP (referred to hospitalist) Consults Time Called: 1638 Consulting Physician: Dr. Mac [facility] hospitalist Returned Call: 1642 Discussed the patient's case with Dr. Mac [facility] hospitalist. The patient will be evaluated for further treatment and disposition. Impression Primary Impression: Cellulitis Scribe Attestation The scribe's documentation has been prepared under my direction and personally reviewed by me in its entirety. I confirm that the note above accurately reflects all work, treatment, procedures, and medical decision making performed by me. The chart was completed utilizing [employer] Speech voice recognition software. Grammatical errors, random word insertions, pronoun errors, and incomplete sentences are an occasional consequence of this system due to software limitations, ambient noise, and hardware issues. Any formal questions or concerns about the content, text, or information contained within the body of this dictation should be directly addressed to the physician for clarification. Departure Information Dispostion Being Evaluated By Hospitalist Referrals Jerrell Post M.D. (PCP) Patient Instructions My [facility] Problem Qualifiers Primary Impression: Cellulitis Site of cellulitis: extremity Site of cellulitis of extremity: lower extremity Laterality: right Qualified Codes: L03.115 - Cellulitis of right lower limb
[2018-05-05] MEDS ORDERED: CHOL20007 PO (15:13)
[2018-05-05] MEDS ORDERED: FURO-85 PO (15:14)
[2018-05-05] MEDS ORDERED: CEPH500C2 PO (15:16)
[2018-05-05] MEDS ORDERED: POTA10CA28 PO (15:19)
[2018-05-05 15:55] LABS: BASO % 0.5 %; EOS % 4.1 %; EOS ABS # 0.83 K/uL (0-0.5); HEMATOCRIT 46.8 % (37-47); HEMOGLOBIN 14.9 g/dL (12.0-16.0); IG# 0.07 K/uL (0.00-0.02); LYMPH % 12.6 %; LYMPH ABS # 2.54 K/uL (1.2-3.4); MEAN CELL VOLUME 85.2 fL (80-100); MEAN CORPUSCULAR HEMOGLOBIN 27.1 pg (25-34); MEAN CORPUSCULAR HGB CONC 31.8 g/dl (32-36); MEAN PLATELET VOLUME 11.8 fL (7.4-10.4); MONO ABS # 1.82 K/uL (0.11-0.59); NEUT % 73.5 %; NUCLEATED RED BLOOD CELL ABS 0.06 K/uL (0-0); PLATELET COUNT 413 K/uL (130-400); RED CELL DISTRIBUTION WIDTH CV 17.8 % (11.5-14.5); RED CELL DISTRIBUTION WIDTH SD 55.3 fL (36.4-46.3); WHITE BLOOD COUNT 20.16 K/uL (4.8-10.8)
[2018-05-05 16:21] LABS: CALCIUM 8.6 mg/dl (8.5-10.1); CREATININE 1.15 mg/dl (0.60-1.20); POTASSIUM 3.5 mmol/L (3.5-5.1)
[2018-05-05] MEDS ORDERED: VANCOMYCIN 1GM ED/ASU OMNICELL IV STA (16:26)
--- NOTE | 2018-05-05 16:38 | DIAGNOSTIC IMAGING REPORT ---
ULTRASOUND RIGHT LOWER EXTREMITY VENOUS CLINICAL HISTORY: Right leg pain. COMPARISON STUDY: Right lower extremity venous ultrasound dated 03/18/2017. TECHNIQUE: Real-time, grayscale, and color Doppler sonography of the deep veins of the right lower extremity was performed from the inguinal crease to the calf. Compression and augmentation were utilized. FINDINGS: There is no sonographic evidence of deep venous thrombosis identified in the right lower extremity. The common femoral, superficial femoral, and popliteal veins are patent and normally compressible. The greater saphenous vein and the profunda femoris vein at the junction with the common femoral vein are clear. The visualized calf veins are patent. IMPRESSION: There is no sonographic evidence of deep venous thrombosis identified in the right lower extremity. Electronically signed by: Addy Mensah M.D. 05/05/2018 4:37 PM Dictated Date/Time: 05/05/2018 4:37 PM
[2018-05-05] MEDS ORDERED: MAGNESIUM HYDROXIDE SUSP 30 ML UDC PO PRN (17:00)
[2018-05-05] MEDS ORDERED: ONDANSETRON INJ 2 MG/ML 2 ML VIAL IV PRN (17:00)
[2018-05-05] MEDS ORDERED: ALUMINUM/MAGNESIUM/SIMETH (MAALOX MAX) 30 ML UDC PO PRN (17:00)
[2018-05-05] MEDS ORDERED: CLONIDINE HCL 0.1 MG TAB PO PRN (17:15)
[2018-05-05 17:17] VITALS: O2SAT 95; Ht 149.9 cm; Wt 114.7 kg
--- NOTE | 2018-05-05 17:22 | History and Physical ---
History & Physical Date & Time of Service: May 05, 2018 at 17:17 Chief Complaint: Cellulitis Primary Care Physician: Jerrell Post M.D. 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 The patient states she has small abrasion which was pruritic which she itched with her cane and then became markedly red and swollen. The patient [facility] a [facility] who prescribed Keflex and Lasix. Patient in no improvement in fact she has had worsening she has had weeping of fluid and presented to emergency department with a significant progressive cellulitis with failed outpatient therapy with Keflex The patient denies any other healthcare problems no fevers or chills chest pain pressure shortness of breath changes in bowel or bladder habits and does have chronic mild swelling to her lower legs she is morbidly obese with a BMI of 51 and this likely impacts her risk for lower extremity infections being difficult to treat Past Medical/Surgical History Medical Problems: (1) Anxiety disorder (2) cellulitis failing outpt treatment (3) Depression (4) Fall (5) Femur fracture, right (6) Fracture of distal end of right femur (7) Hereditary spherocytosis (8) HTN (hypertension) (9) Hypertension Renal colic with uric acid stones Surgical Problems: (1) H/O splenectomy (2) S/P appendectomy (3) S/P cholecystectomy Hysterectomy Family History Diabetes mellitus FH: CVA (cerebrovascular accident) FHx: cancer Hypertension Social History Smoking Status: Never Smoker Drug Use: none Marital Status: single Occupational Status: unemployed Immunizations History of Influenza Vaccine: No History of Tetanus Vaccine?: No History of Pneumococcal: No History of Hepatitis B Vaccine: No Allergies Coded Allergies: Prednisone (Verified Allergy, Severe, HIVES, 05/05/18) Metronidazole (Verified Adverse Reaction, Unknown, "jumpiness" per pt, 05/05) Home Medications Scheduled Allopurinol (Zyloprim), 300 MG PO DAILY Aspirin (Aspirin Ec), 81 MG PO QAM Calcium Carbonate (Calcium 600), 1 TAB PO DAILY Cephalexin Monohydrate (Keflex), 500 MG PO Q6 Cholecalciferol (Vitamin D3), 2,000 UNITS PO DAILY Folic Acid (Folvite), 1 MG PO DAILY Lisinopril (Prinivil), 40 MG PO QAM Nebivolol Hcl (Bystolic), 10 MG PO QPM Potassium Chloride (Micro-K Ext Rel), 10 MEQ PO UD Sertraline (Zoloft), 50 MG PO QPM Scheduled PRN Furosemide (Lasix), 20 MG PO Q12 PRN for livier Lorazepam (Ativan), 0.5 MG PO BID PRN for Anxiety Review of Systems ROS: well nourished well developed. No double vision blurry vision No problems with speech or swallowing No palpitations, chest pain or pressure No Wheezing or breathing issues No abdominal pain nausea vomiting diarrhea changes in appetite or weight No burning urine urine frequency or changes in color No focal joint pain or muscle pain but a tightness feeling in her leg Marked redness to her right lower extremity distal to her knee does not involve the foot there is abrasion bullae blisters and weeping of fluid No other unusual bruising or bleeding No focused back pain or numbness or loss of strength No changes in memory or confusion Physical Exam Vital Signs Date Time Temp Pulse Resp B/P (MAP) Pulse Ox O2 Delivery O2 Flow Rate FiO2 05/05/18 16:45 78 18 180/107 95 Room Air 05/05/18 14:45 36.6 77 20 175/72 96 Room Air General Appearance: WD/WN, + mild distress, + obese Head: normocephalic, atraumatic Eyes: normal inspection, sclerae normal Neck: supple, no JVD Respiratory/Chest: chest non-tender, lungs clear, normal breath sounds Cardiovascular: regular rate, rhythm, no murmur Abdomen/GI: normal bowel sounds, non tender, soft Back: normal inspection, no CVA tenderness Extremities/Musculoskelatal: + pedal edema, + swelling (Swelling right leg greater than left erythema which is outlined in a skin marker approximately the distal two thirds of her lower leg in a circumferential fashion with bullae blisters and weeping of fluid) Neurologic/Psych: alert, oriented x 3 Skin: + rash, + pertinent finding (Dermatitis as suggested) Diagnostics Laboratory Results Results Past 24 Hours Test 05/05/18 15:40 Range/Units White Blood Count 20.16 4.8-10.8 K/uL Red Blood Count 5.49 4.2-5.4 M/uL Hemoglobin 14.9 12.0-16.0 g/dL Hematocrit 46.8 37-47 % Mean Corpuscular Volume 85.2 80-100 fL Mean Corpuscular Hemoglobin 27.1 25-34 pg Mean Corpuscular Hemoglobin Concent 31.8 32-36 g/dl Platelet Count 413 130-400 K/uL Mean Platelet Volume 11.8 7.4-10.4 fL Neutrophils (%) (Auto) 73.5 % Lymphocytes (%) (Auto) 12.6 % Monocytes (%) (Auto) 9.0 % Eosinophils (%) (Auto) 4.1 % Basophils (%) (Auto) 0.5 % Neutrophils # (Auto) 14.80 1.4-6.5 K/uL Lymphocytes # (Auto) 2.54 1.2-3.4 K/uL Monocytes # (Auto) 1.82 0.11-0.59 K/uL Eosinophils # (Auto) 0.83 0-0.5 K/uL Basophils # (Auto) 0.10 0-0.2 K/uL RDW Standard Deviation 55.3 36.4-46.3 fL RDW Coefficient of Variation 17.8 11.5-14.5 % Immature Granulocyte % (Auto) 0.3 % Immature Granulocyte # (Auto) 0.07 0.00-0.02 K/uL Nucleated RBC Absolute Count (auto) 0.06 0-0 K/uL Nucleated Red Blood Cells % 0.3 % Sodium Level 138 136-145 mmol/L Potassium Level 3.5 3.5-5.1 mmol/L Chloride Level 106 98-107 mmol/L Carbon Dioxide Level 25 21-32 mmol/L Anion Gap 7.0 3-11 mmol/L Blood Urea Nitrogen 17 7-18 mg/dl Creatinine 1.15 0.60-1.20 mg/dl Est Creatinine Clear Calc Drug Dose 58.3 ml/min Estimated GFR () 59.5 Estimated GFR (Non- 51.3 BUN/Creatinine Ratio 14.4 10-20 Random Glucose 86 70-99 mg/dl Lactic Acid Level 1.0 0.4-2.0 mmol/L Calcium Level 8.6 8.5-10.1 mg/dl Diagnostic Radiology Right lower extremity venous Doppler negative for DVT Impression Assessment and Plan 63-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 for hypertensive control For history of uric acid kidney stones allopurinol 300 mg will be maintained For anxiety depression will use Zoloft 50 For DVT prevention will use Lovenox Resuscitation Status VTE Prophylaxis Will order VTE Prophylaxis: Yes
[2018-05-05] MEDS ORDERED: VANCOMYCIN CONSULT ACTIVE PRN (17:30)
[2018-05-05 18:35] LABS: PTT PATIENT 30.6 SECONDS (21.0-31.0)
[2018-05-05] MEDS ORDERED: FUROSEMIDE INJ 20 MG in SYRINGE 0 ML IV ONE (19:15)
--- NOTE | 2018-05-05 19:26 | Pharmacy Progress Note ---
Pharmacy Antibiotic Consult Date of Service: May 05, 2018. Pharmacy Dosing Scope Pharmacy is consulted to initiate VANCOMYCIN IV dosing therapy, order appropriate labs and adjust drug dose/frequency. Subjective The patient is a 63 year old female admitted on May 05, 2018 at 17:03. Objective Height (Feet): 4 Height (Inches): 11.00 Weight (Kilograms): 115.000 Lab Results (24hrs): Test 05/05/18 15:40 White Blood Count 20.16 K/uL (4.8-10.8) Red Blood Count 5.49 M/uL (4.2-5.4) Hemoglobin 14.9 g/dL (12.0-16.0) Hematocrit 46.8 % (37-47) Mean Corpuscular Volume 85.2 fL (80-100) Mean Corpuscular Hemoglobin 27.1 pg (25-34) Mean Corpuscular Hemoglobin Concent 31.8 g/dl (32-36) Platelet Count 413 K/uL (130-400) Mean Platelet Volume 11.8 fL (7.4-10.4) Neutrophils (%) (Auto) 73.5 % Lymphocytes (%) (Auto) 12.6 % Monocytes (%) (Auto) 9.0 % Eosinophils (%) (Auto) 4.1 % Basophils (%) (Auto) 0.5 % Neutrophils # (Auto) 14.80 K/uL (1.4-6.5) Lymphocytes # (Auto) 2.54 K/uL (1.2-3.4) Monocytes # (Auto) 1.82 K/uL (0.11-0.59) Eosinophils # (Auto) 0.83 K/uL (0-0.5) Basophils # (Auto) 0.10 K/uL (0-0.2) RDW Standard Deviation 55.3 fL (36.4-46.3) RDW Coefficient of Variation 17.8 % (11.5-14.5) Immature Granulocyte % (Auto) 0.3 % Immature Granulocyte # (Auto) 0.07 K/uL (0.00-0.02) Nucleated RBC Absolute Count (auto) 0.06 K/uL (0-0) Nucleated Red Blood Cells % 0.3 % Prothrombin Time 10.9 SECONDS (9.0-12.0) Prothromb Time International Ratio 1.0 (0.9-1.1) Activated Partial Thromboplast Time 30.6 SECONDS (21.0-31.0) Partial Thromboplastin Ratio 1.2 Sodium Level 138 mmol/L (136-145) Potassium Level 3.5 mmol/L (3.5-5.1) Chloride Level 106 mmol/L (98-107) Carbon Dioxide Level 25 mmol/L (21-32) Anion Gap 7.0 mmol/L (3-11) Blood Urea Nitrogen 17 mg/dl (7-18) Creatinine 1.15 mg/dl (0.60-1.20) Est Creatinine Clear Calc Drug Dose 58.3 ml/min Estimated GFR () 59.5 Estimated GFR (Non- 51.3 BUN/Creatinine Ratio 14.4 (10-20) Random Glucose 86 mg/dl (70-99) Lactic Acid Level 1.0 mmol/L (0.4-2.0) Calcium Level 8.6 mg/dl (8.5-10.1) Assessment & Plan 63yo female ordered VANCOMYCIN for cellulitis. Renal function is good. VANCOMYCIN: * Loading dose: VANCOMYCIN 1000mg + 1750mg (~24mg/kg) IV then VANCOMYCIN 1500mg (~13mg/kg) IV every 18 hours. * Estimated Pk parameters: Vd ~0.54 L/kg ke ~0.053 t1/2 ~13 hours * Goal trough level estimate: between 15 - 20 mcg/mL. * Trough level has been ordered for: @ 0800. * Pharmacy will continue to follow and will adjust dose/frequency as necessary. Thank you
[2018-05-05] MEDS ORDERED: VANCOMYCIN IV 1,750 MG in SODIUM CHLORIDE 0.9% 500ML 500 ML IV SCH (19:30)
[2018-05-05] MEDS: ACETAMINOPHEN 325 MG TAB PO PRN (19:47)
[2018-05-05] MEDS: LORAZEPAM 0.5 MG TAB PO PRN (19:47)
[2018-05-05] MEDS: ENOXAPARIN 40 MG/0.4 ML SYR SQ SCH (19:48)
[2018-05-05] MEDS: BYSTOLIC 10 MG PO SCH (19:48)
[2018-05-05] MEDS: SERTRALINE HCL 50 MG TAB PO SCH (19:49)
[2018-05-05 22:38] VITALS: BP 155/85; PULSE 72; TEMP 36.7; O2SAT 97
[2018-05-06 06:49] VITALS: BP 148/70; PULSE 71; TEMP 36.9; O2SAT 95
[2018-05-06 07:32] LABS: HEMATOCRIT 47.2 % (37-47); HEMOGLOBIN 14.7 g/dL (12.0-16.0); MEAN CELL VOLUME 86.3 fL (80-100); MEAN CORPUSCULAR HEMOGLOBIN 26.9 pg (25-34); MEAN CORPUSCULAR HGB CONC 31.1 g/dl (32-36); NUCLEATED RED BLOOD CELL ABS 0.06 K/uL (0-0); PLATELET COUNT 420 K/uL (130-400); RED CELL DISTRIBUTION WIDTH CV 18.2 % (11.5-14.5); RED CELL DISTRIBUTION WIDTH SD 57.3 fL (36.4-46.3); WHITE BLOOD COUNT 19.67 K/uL (4.8-10.8)
[2018-05-06 08:30] LABS: CALCIUM 8.8 mg/dl (8.5-10.1); CREATININE 1.08 mg/dl (0.60-1.20)
[2018-05-06] MEDS: ASPIRIN 81 MG ECTAB PO SCH (09:14)
[2018-05-06] MEDS: ALLOPURINOL 300 MG TAB PO SCH (09:14)
[2018-05-06] MEDS: LISINOPRIL 40 MG TAB PO SCH (09:14)
[2018-05-06 09:33] LABS: POTASSIUM 3.7 mmol/L (3.5-5.1)
[2018-05-06] MEDS: VANCOMYCIN IV 1,500 MG in SODIUM CHLORIDE 0.9% 500ML 500 ML IV SCH (13:18)
[2018-05-06 16:00] VITALS: O2SAT 95
--- NOTE | 2018-05-06 16:00 | Progress Note ---
Subjective Date of Service: May 06, 2018. Subjective this pt has had great improvement in her erythema, she still has some seeping of her leg wounds Problem List Medical Problems: (1) Cellulitis Status: Acute (2) Fall Status: Acute (3) Femur fracture, right Status: Acute Review of Systems Constitutional: No fever, No chills, No weakness, No fatigue Cardiac: No chest pain, No edema Abdomen: No pain, No nausea, No vomiting Musculoskeletal: + muscle pain, + swelling, No joint pain, No calf pain Female : No dysuria, No urinary frequency Psychiatric: No depression symptoms, No anhedonism Skin: + rash, + new/changing skin lesions, + color change Objective Vital Signs Date Time Temp Pulse Resp B/P (MAP) Pulse Ox O2 Delivery O2 Flow Rate FiO2 05/06/18 07:50 Room Air 05/06/18 06:49 36.9 71 18 148/70 (96) 95 Room Air 05/06/18 00:05 Room Air 05/05/18 22:38 36.7 72 18 155/85 (108) 97 Room Air 05/05/18 18:10 36.6 72 18 179/82 95 05/05/18 18:03 72 18 179/82 95 Room Air 05/05/18 17:17 95 Room Air 05/05/18 16:45 78 18 180/107 95 Room Air Physical Exam General Appearance: WD/WN, + mild distress Eyes: normal inspection, sclerae normal Neck: supple, no JVD Respiratory/Chest: chest non-tender, lungs clear, normal breath sounds Cardiovascular: regular rate, rhythm, no murmur Abdomen: normal bowel sounds, non tender, soft Extremities: + pedal edema, + swelling Neurologic/Psychiatric: alert, oriented x 3 Skin: + rash, + cyanosis Laboratory Results Last 24 Hours Test 05/06/18 07:07 05/06/18 08:43 White Blood Count 19.67 K/uL Red Blood Count 5.47 M/uL Hemoglobin 14.7 g/dL Hematocrit 47.2 % Mean Corpuscular Volume 86.3 fL Mean Corpuscular Hemoglobin 26.9 pg Mean Corpuscular Hemoglobin Concent 31.1 g/dl RDW Standard Deviation 57.3 fL RDW Coefficient of Variation 18.2 % Platelet Count 420 K/uL Mean Platelet Volume 12.0 fL Nucleated RBC Absolute Count (auto) 0.06 K/uL Nucleated Red Blood Cells % 0.3 % Sodium Level 138 mmol/L Potassium Level mmol/L 3.7 mmol/L Chloride Level 103 mmol/L Carbon Dioxide Level 28 mmol/L Anion Gap 7.0 mmol/L Blood Urea Nitrogen 15 mg/dl Creatinine 1.08 mg/dl Est Creatinine Clear Calc Drug Dose 60.4 ml/min Estimated GFR () 64.2 Estimated GFR (Non- 55.4 BUN/Creatinine Ratio 14.0 Random Glucose 100 mg/dl Calcium Level 8.8 mg/dl Magnesium Level mg/dl 2.1 mg/dl Assessment and Plan 63-year-old female with out a spleen who presents with the cellulitis failing outpatient therapy responded well to one dose of Lasix, continue low sodium diet, continues on vancomycin pending blood cultures wound care consult will apply celia patel hypertension she was markedly hypertensive in the ER, continue lisinopril and bystolic or a pharmacy substituted, prn clonidine p.o. for hypertensive control asymptomatic uric acid kidney stones allopurinol 300 mg will be maintained anxiety depression Zoloft 50 For DVT prevention will use Lovenox
[2018-05-06] MEDS: ACETAMINOPHEN 325 MG TAB PO PRN ×2 (16:13→23:41)
[2018-05-06 16:14] VITALS: BP 149/79; PULSE 80; TEMP 36.9; O2SAT 98
[2018-05-06] MEDS: SERTRALINE HCL 50 MG TAB PO SCH (21:22)
[2018-05-06] MEDS: BYSTOLIC 10 MG PO SCH (21:22)
[2018-05-06] MEDS: ENOXAPARIN 40 MG/0.4 ML SYR SQ SCH (21:22)
[2018-05-06 23:05] VITALS: BP 179/78; PULSE 56; TEMP 37.1; O2SAT 96
[2018-05-06] MEDS: LORAZEPAM 0.5 MG TAB PO PRN (23:41)
[2018-05-07 02:13] VITALS: O2SAT 95
[2018-05-07 06:57] VITALS: BP 178/84; PULSE 76; TEMP 36.7; O2SAT 94
[2018-05-07] MEDS ORDERED: VANCOMYCIN TROUGH ONE (07:30)
[2018-05-07] MEDS ORDERED: SULF800T23 PO (07:41)
--- NOTE | 2018-05-07 07:42 | Discharge Instructions ---
Discharge Instructions Date of Service May 07, 2018. Admission Reason for Admission: Cellulitis Failing Outpt Treatment Discharge Discharge Diagnosis / Problem: cellulitis right lower extremity Discharge Goals Goal(s): Diagnostic testing, Therapeutic intervention Activity Recommendations Activity Limitations: as noted below Lifting Limitations: gradually increase as tolerated Change dressing once a day and when wet Follow up with wound care center and primary care doctor within one week of discharge Elevate legs as much as possible low sodium diet please . Current Hospital Diet Patient's current hospital diet: Low Sodium Diet (2gm Na) Discharge Diet Recommended Diet: Low Sodium Diet (2gm Na) Pending Studies Studies pending at discharge: no Medical Emergencies . Who to Call and When: Medical Emergencies: If at any time you feel your situation is an emergency, please call 911 immediately. . Non-Emergent Contact Non-Emergency issues call your: Primary Care Provider Call Non-Emergent contact if: temperature is above 101, your pain is not controlled . . "Provider Documentation" section prepared by Manuel Fraire. .
[2018-05-07] MEDS: ALLOPURINOL 300 MG TAB PO SCH (08:06)
[2018-05-07] MEDS: LISINOPRIL 40 MG TAB PO SCH (08:06)
[2018-05-07] MEDS: ASPIRIN 81 MG ECTAB PO SCH (08:06)
[2018-05-07] MEDS: VANCOMYCIN IV 1,500 MG in SODIUM CHLORIDE 0.9% 500ML 500 ML IV SCH (08:09)
[2018-05-07] MEDS ORDERED: FURO-85 PO (09:36)
[2018-05-07 10:16] VITALS: BP 178/84; PULSE 76; TEMP 36.7; O2SAT 94
--- NOTE | 2018-05-07 11:09 | Pharmacy Progress Note ---
Pharmacy Abx Dose Short Note Date of Service May 07, 2018. Assessment & Plan Assessment 63 year old female receiving Vancomycin for treatment of cellulitis Day # 3 of antimicrobial therapy. Plan Item Value Date Time Vancomycin Level Trough 12.0 mcg/ml 05/07/18 0758 Vancomycin * Trough level of 12.0 mcg/mL is therapeutic * Continue dose of 1500 mg IV every 18 hours * Goal trough level for cellulitis : 10 to 15 mcg/mL Patient is being discharged today and has new RX for Bactrim per med. rec. If not discharged, will order additional trough to access appropriateness. Pharmacy will continue to follow and will adjust dose/frequency as necessary. Thank you.
--- NOTE | 2018-05-07 12:14 | Discharge Summary ---
Discharge Summary Date of Service May 07, 2018. Discharge Summary Admission Date: May 05, 2018 at 17:03 Discharge Date: May 07, 2018 Discharge Disposition: Home with services Principal Diagnosis: LE cellulitis, chronic le edema Immunizations: Have You Had Influenza Vaccine: No History of Tetanus Vaccine?: No History of Pneumococcal: No History of Hepatitis B Vaccine: No Medication Reconciliation New Medications: Sulfa/Trimethoprim (Bactrim Ds 800MG/160MG) Tab 1 TAB PO BID, #16 TAB Changed Medications: Furosemide (Lasix) 20 Mg Tab 20 MG PO DAILY, #30 TAB (Changed from: Q12; Removed Reason) Continued Medications: Allopurinol (Zyloprim) 300 Mg Tab 300 MG PO DAILY, TAB Aspirin (Aspirin Ec) 81 Mg Tab 81 MG PO QAM Calcium Carbonate (Calcium 600) 600 Mg Tab 1 TAB PO DAILY Cholecalciferol (Vitamin D3) 2,000 Unit Tab 2000 UNITS PO DAILY for 90 Days, TAB 3 Refills Folic Acid (Folvite) 1 Mg Tab 1 MG PO DAILY, TAB Lisinopril (Prinivil) 40 Mg Tab 40 MG PO QAM, TAB Lorazepam (Ativan) 0.5 Mg Tab 0.5 MG PO BID PRN for Anxiety, TAB Nebivolol Hcl (Bystolic) 10 Mg Tab 10 MG PO QPM, TAB Potassium Chloride (Micro-K Ext Rel) 10 Meq Capcr 10 MEQ PO UD, CAP take 10meq with every dose of furosemide Sertraline (Zoloft) 50 Mg Tab 50 MG PO QPM, TAB Discontinued Medications: Cephalexin Monohydrate (Keflex) 500 Mg Cap 500 MG PO Q6, CAP Discharge Exam Review of Systems: Constitutional: No fever, No chills, No weakness Cardiovascular: No chest pain, No edema Abdomen: No pain, No nausea, No vomiting Musculoskeletal: + swelling, No joint pain, No muscle pain Physical Exam: General Appearance: WD/WN, + obese Neck: supple, no JVD Respiratory/Chest: chest non-tender, lungs clear, normal breath sounds Abdomen / GI: normal bowel sounds, non tender, soft Hospital Course 63-year-old female with out a spleen who presents with the cellulitis failing outpatient therapy responded well to one dose of Lasix, continue low sodium diet, will send home on bactrim, continue low dose po lasix and reinforce leg elevation and compression stockings wound care pt requests to follow up in [facility] hypertension she was markedly hypertensive in the ER, continue lisinopril and bystolic or a pharmacy substituted, prn clonidine p.o. for hypertensive control asymptomatic uric acid kidney stones allopurinol 300 mg will be maintained Morbid obesity, we discussed how weight loss would help her lower leg swelling she as a BMI>50 anxiety depression Zoloft 50 Total Time Spent: Greater than 30 minutes This includes examination of the patient, discharge planning, medication reconciliation, and communication with other providers. Discharge Instructions Please refer to the electronic Patient Visit Report (Discharge Instructions) for additional information.
== END 2018-05-07 12:49 | disposition home health service (06) | DRG 603 ==
LOC: C.EDB 14:43 → C.MS2W 17:03 → ENRESERV 17:26
PROVIDERS: ADMIT Internal Medicine; ATTEND Internal Medicine
DX: L03.115 Cellulitis of right lower limb (principal); Z68.43 Body mass index [BMI] 50.0-59.9, adult; I10 Essential (primary) hypertension; R60.0 Localized edema; F41.9 Anxiety disorder, unspecified; F32.9 Major depressive disorder, single episode, unspecified; D58.0 Hereditary spherocytosis; E66.01 Morbid (severe) obesity due to excess calories; Z51.81 Encounter for therapeutic drug level monitoring; Z79.899 Other long term (current) drug therapy; Z79.82 Long term (current) use of aspirin; Z90.81 Acquired absence of spleen; Z87.442 Personal history of urinary calculi; Z88.8 Allergy status to other drugs, medicaments and biological substances; Z88.3 Allergy status to other anti-infective agents; Z82.49 Family history of ischemic heart disease and other diseases of the circulatory system; Z82.3 Family history of stroke